=== PATIENT | female | born 1945 | race Caucasian/White ===

== ENCOUNTER 2016-07-31 20:57 | Emergency (ER) | payer OTHER, BC ==
[~2016-07-31] VITALS: Ht 162.6 cm; Wt 131.5 kg
[2016-07-31 22:00] VITALS: BP_SYST 127
[2016-07-31] MEDS ORDERED: KETOROLAC TROMETHAMINE 60 MG/2 ML VIAL IM ONE (22:15)
[2016-07-31 23:01] LABS: BASOPHILS # (AUTO) 0.1 K/uL (0.0-0.2); BASOPHILS % (AUTO) 0.8 % (0.0-2.0); EOSINOPHILS # (AUTO) 0.4 K/uL (0.0-0.4); HEMATOCRIT 38.2 % (36-48); HEMOGLOBIN 12.9 g/dL (12.0-16.0); LYMPHOCYTES # (AUTO) 2.8 K/uL (1.0-5.5); LYMPHOCYTES % (AUTO) 23.1 % (20.5-51.5); MEAN CORPUSCULAR HEMOGLOBIN 30 pg (27-31); MEAN CORPUSCULAR HGB CONC 34 % (32-36); MEAN CORPUSCULAR VOLUME 89 fL (79.0-98.0); MONOCYTES # (AUTO) 0.8 K/uL (0.0-1.0); MONOCYTES % (AUTO) 6.4 % (1.7-9.3); NEUTROPHILS # (AUTO) 7.9 K/uL (1.8-7.7); NEUTROPHILS % (AUTO) 66.7 % (40.0-70.0); PLATELET COUNT (AUTO) 419 K/uL (130-430); RED BLOOD CELL COUNT(AUTO) 4.27 MIL/uL (4.2-6.2); RED CELL DISTRIBUTION WIDTH 12.4 % (9.0-15.0)
[2016-08-01 00:02] VITALS: BP_SYST 122
== END 2016-08-01 00:02 | disposition home or self-care (01) ==
LOC: SED 20:57
DX: M10.9 Gout, unspecified (principal); I10 Essential (primary) hypertension; E78.00 Pure hypercholesterolemia, unspecified; Z88.0 Allergy status to penicillin
CPT/HCPCS: 36415; 73630; 84550; 85025; 96372; 99285; J1885

== ENCOUNTER 2017-12-27 07:56 | Emergency (ER) | payer OTHER, BC ==
[~2017-12-27] VITALS: Ht 162.6 cm; Wt 136.1 kg
[2017-12-27 08:05] VITALS: BP_SYST 154
[2017-12-27 08:57] VITALS: BP_SYST 144
== END 2017-12-27 08:57 | disposition home or self-care (01) ==
LOC: SED 07:56
DX: S92.351A Displaced fracture of fifth metatarsal bone, right foot, initial encounter for closed fracture (principal); E78.00 Pure hypercholesterolemia, unspecified; I10 Essential (primary) hypertension; Z88.0 Allergy status to penicillin; X58.XXXA Exposure to other specified factors, initial encounter; Y93.89 Activity, other specified; Y92.89 Other specified places as the place of occurrence of the external cause; Y99.8 Other external cause status
CPT/HCPCS: 99284

== ENCOUNTER 2020-06-10 13:14 | Inpatient (IN) | payer BC, SELFPAY ==
[~2020-06-10] VITALS: Ht 162.6 cm; Wt 136.1 kg
[~2020-06-10 13:14] MED LIST: BUPIVACAINE /DEX PF 0.75% SPINAL 2 ML AMP INJ ONE; BUPIVACAINE /EPINEPHRINE/PF 0.25% 30 ML VIAL INJ ONE; CEFAZOLIN 1 GM IVPB PREMIX 50 ML IV ONE; EPINEPHrine 1 MG/ML AMP IM ONE; LR 1,000 ML IV.SOLN IV ONE; MIDAZOLAM HCL 5 MG/5 ML VIAL IVP ONE; NS 1000 ML IV.SOLN IV ONE; NS IRRIG SOLN 1000 ML IR ONE; PROPOFOL 200MG/ 20ML VIAL (DIPRIVAN) IV ONE
[2020-06-10 13:15] VITALS: BP_SYST 165
[2020-06-10] MEDS ORDERED: fentaNYL CITRATE/PF 100 MCG/2 ML AMP IVP ONE (14:45)
[2020-06-10] MEDS ORDERED: fentaNYL CITRATE/PF 100 MCG/2 ML AMP ONE (14:46)
[2020-06-10 14:52] LABS: BASOPHILS # (AUTO) 0.2 K/uL (0.0-0.2); BASOPHILS % (AUTO) 1.4 % (0.0-2.0); EOSINOPHILS # (AUTO) 0.1 K/uL (0.0-0.4); HEMATOCRIT 32.5 % (36-48); HEMOGLOBIN 10.7 g/dL (12.0-16.0); LYMPHOCYTES # (AUTO) 1.9 K/uL (1.0-5.5); LYMPHOCYTES % (AUTO) 13.2 % (20.5-51.5); MEAN CORPUSCULAR HEMOGLOBIN 30 pg (27-31); MEAN CORPUSCULAR HGB CONC 33 % (32-36); MEAN CORPUSCULAR VOLUME 91 fL (79.0-98.0); MONOCYTES # (AUTO) 0.7 K/uL (0.0-1.0); MONOCYTES % (AUTO) 4.7 % (1.7-9.3); NEUTROPHILS # (AUTO) 11.2 K/uL (1.8-7.7); NEUTROPHILS % (AUTO) 79.7 % (40.0-70.0); PLATELET COUNT (AUTO) 355 K/uL (130-430); RED BLOOD CELL COUNT(AUTO) 3.57 MIL/uL (4.2-6.2)
[2020-06-10 15:11] LABS: ANION GAP 7 (5-15); CALCIUM 9.2 mg/dL (8.4-11.0); CHLORIDE 104 mmol/L (98-107); CREATININE 1.77 mg/dL (0.55-1.30); GLUCOSE 145 mg/dL (70-99); POTASSIUM 4.4 mmol/L (3.5-5.1); SODIUM SERUM 140 mmol/L (136-145); UREA NITROGEN, BLOOD 31 mg/dL (8-21)
[2020-06-10] MEDS: D5/0.45 NS 1,000 ML IV SCH (15:15)
[2020-06-10] MEDS ORDERED: MORPHINE 2 MG/ML INJ. SYRINGE IVP PRN (15:15)
[2020-06-10 15:16] LABS: ALANINE AMINOTRANSFERASE 18 U/L (12-78); ALBUMIN 3.5 g/dL (3.4-4.8); ASPARTATE AMINOTRANSFERASE 15 U/L (10-37); TOTAL BILIRUBIN 0.2 mg/dL (0.0-1.0)
[2020-06-10 16:38] LABS: PROTHROMBIN TIME 9.8 SECS (9.5-12.5)
[2020-06-10 18:33] VITALS: BP_SYST 127
[2020-06-10 18:45] VITALS: BP_SYST 127
[2020-06-10] MEDS: MORPHINE 4 MG/ML INJ. SYRINGE IVP PRN ×2 (18:50→23:24)
[2020-06-10 20:00] VITALS: BP_SYST 120
[2020-06-11 00:35] VITALS: BP_SYST 127
[2020-06-11 01:30] VITALS: BP_SYST 96
[2020-06-11] MEDS: MORPHINE 4 MG/ML INJ. SYRINGE IVP PRN ×3 (04:50→20:31)
[2020-06-11] MEDS: D5/0.45 NS 1,000 ML IV SCH (09:42)
[2020-06-11] MEDS: cefTRIAXone 1 GM IVPB PREMIX 50 ML IV SCH (11:15)
[2020-06-11 12:45] VITALS: BP_SYST 105
[2020-06-11 16:20] VITALS: BP_SYST 118
[2020-06-11] MEDS ORDERED: METO25TA6 PO ×2 (19:44→19:46)
[2020-06-11] MEDS ORDERED: LIP20 PO (19:45)
[2020-06-11] MEDS ORDERED: LOSA1TAB9 PO (19:45)
[2020-06-11 20:00] VITALS: BP_SYST 110
[2020-06-12] MEDS: MORPHINE 4 MG/ML INJ. SYRINGE IVP PRN ×2 (03:32→13:00)
[2020-06-12 04:08] LABS: BILIRUBIN,URINE NEGATIVE (NEGATIVE); BLOOD, URINE 2+ (NEGATIVE); CLARITY/URINE CLEAR (CLEAR); COLOR,URINE YELLOW (YELLOW); GLUCOSE,URINE NEGATIVE (NEGATIVE); KETONES,URINE NEGATIVE (NEGATIVE); LEUKOCYTE ESTERASE ,URINE NEGATIVE (NEGATIVE); NITRITE, URINE NEGATIVE (NEGATIVE); PROTEIN URINE NEGATIVE (NEGATIVE); UROBILINOGEN,URINE 0.2 (0.2-1.0)
[2020-06-12 04:11] LABS: BACTERIA,URINE FEW /HPF (None Seen); WBC,URINE 0-3 /HPF (0-3)
[2020-06-12 08:00] VITALS: BP_SYST 111
[2020-06-12] MEDS: cefTRIAXone 1 GM IVPB PREMIX 50 ML IV SCH (08:34)
[2020-06-12] MEDS: D5/0.45 NS 1,000 ML IV SCH (08:37)
[2020-06-12 12:00] VITALS: BP_SYST 112
[2020-06-12 16:00] VITALS: BP_SYST 110
[2020-06-12 19:56] VITALS: BP_SYST 138
[2020-06-13 00:25] VITALS: BP_SYST 113
[2020-06-13] MEDS: D5/0.45 NS 1,000 ML IV SCH (03:15)
[2020-06-13] MEDS: MORPHINE 4 MG/ML INJ. SYRINGE IVP PRN ×2 (03:53→19:27)
[2020-06-13 07:48] LABS: ANION GAP 10 (5-15); CALCIUM 8.6 mg/dL (8.4-11.0); CHLORIDE 104 mmol/L (98-107); CREATININE 2.74 mg/dL (0.55-1.30); GLUCOSE 136 mg/dL (70-99); POTASSIUM 4.8 mmol/L (3.5-5.1); SODIUM SERUM 138 mmol/L (136-145); UREA NITROGEN, BLOOD 55 mg/dL (8-21)
[2020-06-13] MEDS: cefTRIAXone 1 GM IVPB PREMIX 50 ML IV SCH (08:18)
[2020-06-13 09:41] LABS: BASOPHILS # (AUTO) 0.1 K/uL (0.0-0.2); BASOPHILS % (AUTO) 0.5 % (0.0-2.0); EOSINOPHILS % (AUTO) 0.3 % (0.0-4.0); LYMPHOCYTES # (AUTO) 1.4 K/uL (1.0-5.5); MEAN CORPUSCULAR HEMOGLOBIN 30 pg (27-31); MEAN CORPUSCULAR HGB CONC 33 % (32-36); MEAN CORPUSCULAR VOLUME 91 fL (79.0-98.0); MONOCYTES # (AUTO) 1.1 K/uL (0.0-1.0); MONOCYTES % (AUTO) 9.4 % (1.7-9.3); NEUTROPHILS # (AUTO) 9.1 K/uL (1.8-7.7); PLATELET COUNT (AUTO) 253 K/uL (130-430); RED BLOOD CELL COUNT(AUTO) 2.26 MIL/uL (4.2-6.2); RED CELL DISTRIBUTION WIDTH 12.7 % (9.0-15.0); WHITE BLOOD COUNT (AUTO) 11.7 K/uL (4.8-10.8)
[2020-06-13 09:44] LABS: HEMATOCRIT 20.7 % (36-48); HEMOGLOBIN 6.8 g/dL (12.0-16.0)
[2020-06-13 10:13] VITALS: BP_SYST 113
[2020-06-13] MEDS ORDERED: NACL 0.9% 1,000 ML IV ONE (10:15)
[2020-06-13 12:00] VITALS: BP_SYST 121
[2020-06-13 12:35] LABS: NEUTROPHILS % (AUTO) 77.8 % (40.0-70.0)
[2020-06-13] MEDS ORDERED: ACETAMINOPHEN 325 MG TABLET ONE (13:47)
[2020-06-13] MEDS: ACETAMINOPHEN 325 MG TABLET PO PRN (13:51)
[2020-06-13 16:00] VITALS: BP_SYST 120
[2020-06-13 19:55] LABS: HEMOGLOBIN 8.3 g/dL (12.0-16.0)
[2020-06-13 20:00] VITALS: BP_SYST 134
[2020-06-14] VITALS: BP_SYST 103
[2020-06-14] MEDS: MORPHINE 4 MG/ML INJ. SYRINGE IVP PRN ×2 (03:49→15:10)
[2020-06-14] MEDS: NACL 0.9% 1,000 ML IV SCH ×3 (04:04→21:10)
[2020-06-14 08:00] VITALS: BP_SYST 108
[2020-06-14] MEDS: cefTRIAXone 1 GM IVPB PREMIX 50 ML IV SCH (08:09)
[2020-06-14 08:47] LABS: HEMATOCRIT 25.9 % (36-48); HEMOGLOBIN 8.6 g/dL (12.0-16.0)
[2020-06-14 08:54] LABS: ANION GAP 10 (5-15); CALCIUM 8.6 mg/dL (8.4-11.0); CHLORIDE 108 mmol/L (98-107); GLUCOSE 110 mg/dL (70-99); POTASSIUM 4.8 mmol/L (3.5-5.1); SODIUM SERUM 141 mmol/L (136-145); UREA NITROGEN, BLOOD 57 mg/dL (8-21)
[2020-06-14] MEDS ORDERED: ONDANSETRON HCL 4 MG/2 ML VIAL IVP PRN (11:15)
[2020-06-14] MEDS ORDERED: fentaNYL CITRATE/PF 100 MCG/2 ML AMP IVP PRN ×2 (11:15)
[2020-06-14] MEDS ORDERED: HYDROcodone/ACETAMIN 5-325 MG TAB (NORCO/ VICODIN) PO PRN (13:45)
[2020-06-14] MEDS ORDERED: NALOXONE HCL 0.4 MG/ML AMP (NARCAN) IVP PRN ×2 (13:45)
[2020-06-14 14:15] VITALS: BP_SYST 103
[2020-06-14] MEDS: CEFAZOLIN 1 GM IVPB PREMIX 50 ML IV SCH ×2 (15:00→21:11)
[2020-06-14 16:36] VITALS: BP_SYST 89
[2020-06-14 20:00] VITALS: BP_SYST 114
[2020-06-14] MEDS ORDERED: HYDROcodone/ACETAMIN 5-325 MG TAB (NORCO/ VICODIN) ONE (21:25)
[2020-06-14] MEDS: HYDROcodone/ACETAMIN 5-325 MG TAB (NORCO/ VICODIN) PO PRN (21:26)
[2020-06-15 01:20] VITALS: BP_SYST 106
[2020-06-15] MEDS ORDERED: HYDROcodone/ACETAMIN 5-325 MG TAB (NORCO/ VICODIN) ONE (01:56)
[2020-06-15] MEDS: NACL 0.9% 1,000 ML IV SCH ×2 (01:56→18:01)
[2020-06-15] MEDS: HYDROcodone/ACETAMIN 5-325 MG TAB (NORCO/ VICODIN) PO PRN ×2 (01:58→21:39)
[2020-06-15 07:44] LABS: BASOPHILS # (AUTO) 0.1 K/uL (0.0-0.2); BASOPHILS % (AUTO) 0.7 % (0.0-2.0); EOSINOPHILS # (AUTO) 0.2 K/uL (0.0-0.4); EOSINOPHILS % (AUTO) 2.4 % (0.0-4.0); LYMPHOCYTES # (AUTO) 1.5 K/uL (1.0-5.5); LYMPHOCYTES % (AUTO) 14.8 % (20.5-51.5); MEAN CORPUSCULAR HEMOGLOBIN 31 pg (27-31); MEAN CORPUSCULAR HGB CONC 34 % (32-36); MEAN CORPUSCULAR VOLUME 93 fL (79.0-98.0); MONOCYTES % (AUTO) 9.8 % (1.7-9.3); NEUTROPHILS # (AUTO) 7.3 K/uL (1.8-7.7); NEUTROPHILS % (AUTO) 72.3 % (40.0-70.0); PLATELET COUNT (AUTO) 288 K/uL (130-430); RED BLOOD CELL COUNT(AUTO) 2.19 MIL/uL (4.2-6.2); RED CELL DISTRIBUTION WIDTH 13.1 % (9.0-15.0); WHITE BLOOD COUNT (AUTO) 10.1 K/uL (4.8-10.8)
[2020-06-15 07:53] LABS: ANION GAP 10 (5-15); CALCIUM 8.3 mg/dL (8.4-11.0); CHLORIDE 106 mmol/L (98-107); CREATININE 2.28 mg/dL (0.55-1.30); GLUCOSE 119 mg/dL (70-99); POTASSIUM 4.7 mmol/L (3.5-5.1); SODIUM SERUM 138 mmol/L (136-145); UREA NITROGEN, BLOOD 64 mg/dL (8-21)
[2020-06-15 08:00] VITALS: BP_SYST 104
[2020-06-15 08:52] LABS: HEMATOCRIT 20.3 % (36-48); HEMOGLOBIN 6.8 g/dL (12.0-16.0)
[2020-06-15] MEDS: cefTRIAXone 1 GM IVPB PREMIX 50 ML IV SCH (09:00)
[2020-06-15] MEDS ORDERED: IPRATROPIUM/ALBUTEROL SULFATE 3 ML AMPUL.NEB (DUONEB) INH PRN (11:45)
[2020-06-15 12:13] VITALS: BP_SYST 110
[2020-06-15] MEDS: ENOXAPARIN SODIUM 30 MG/0.3 ML SYRINGE SQ SCH (13:00)
[2020-06-15 16:11] VITALS: BP_SYST 120
[2020-06-15] MEDS ORDERED: ONDANSETRON HCL 4 MG/2 ML VIAL ONE (18:05)
[2020-06-15 20:00] VITALS: BP_SYST 113
[2020-06-15] MEDS: METOPROLOL TARTRATE 25 MG TABLET PO SCH (21:00)
[2020-06-15] MEDS: ATORVASTATIN 20 MG TABLET PO SCH (21:39)
[2020-06-16 02:14] VITALS: BP_SYST 110
[2020-06-16] MEDS ORDERED: ONDANSETRON HCL 4 MG/2 ML VIAL ONE ×2 (03:01→08:23)
[2020-06-16] MEDS: ONDANSETRON HCL 4 MG/2 ML VIAL IM PRN ×2 (03:04→08:28)
[2020-06-16] MEDS ORDERED: ACETAMINOPHEN 325 MG TABLET ONE (03:53)
[2020-06-16] MEDS: ACETAMINOPHEN 325 MG TABLET PO PRN (03:55)
[2020-06-16 06:58] LABS: BILIRUBIN,URINE NEGATIVE (NEGATIVE); BLOOD, URINE 2+ (NEGATIVE); CLARITY/URINE SL CLOUDY (CLEAR); COLOR,URINE YELLOW (YELLOW); GLUCOSE,URINE NEGATIVE (NEGATIVE); KETONES,URINE NEGATIVE (NEGATIVE); LEUKOCYTE ESTERASE ,URINE TRACE (NEGATIVE); NITRITE, URINE NEGATIVE (NEGATIVE); PROTEIN URINE 1+ (NEGATIVE); UROBILINOGEN,URINE 0.2 (0.2-1.0)
[2020-06-16 08:25] VITALS: BP_SYST 118
[2020-06-16 08:26] LABS: BASOPHILS # (AUTO) 0.1 K/uL (0.0-0.2); BASOPHILS % (AUTO) 0.6 % (0.0-2.0); EOSINOPHILS # (AUTO) 0.3 K/uL (0.0-0.4); EOSINOPHILS % (AUTO) 2.1 % (0.0-4.0); HEMATOCRIT 26.8 % (36-48); HEMOGLOBIN 8.9 g/dL (12.0-16.0); LYMPHOCYTES # (AUTO) 1.1 K/uL (1.0-5.5); LYMPHOCYTES % (AUTO) 8.3 % (20.5-51.5); MEAN CORPUSCULAR HEMOGLOBIN 30 pg (27-31); MEAN CORPUSCULAR HGB CONC 33 % (32-36); MEAN CORPUSCULAR VOLUME 92 fL (79.0-98.0); MONOCYTES # (AUTO) 1.1 K/uL (0.0-1.0); MONOCYTES % (AUTO) 8.5 % (1.7-9.3); NEUTROPHILS # (AUTO) 10.5 K/uL (1.8-7.7); NEUTROPHILS % (AUTO) 80.5 % (40.0-70.0); PLATELET COUNT (AUTO) 356 K/uL (130-430); RED BLOOD CELL COUNT(AUTO) 2.93 MIL/uL (4.2-6.2); RED CELL DISTRIBUTION WIDTH 13.7 % (9.0-15.0)
[2020-06-16 08:41] LABS: RBC,URINE 20-50 /HPF (0-3)
[2020-06-16 08:42] LABS: BACTERIA,URINE None Seen /HPF (None Seen); URINE AMORPHOUS URATE 1+ /HPF (None Seen); YEAST,URINE Moderate /HPF (None Seen)
[2020-06-16 08:55] LABS: ALANINE AMINOTRANSFERASE 12 U/L (12-78); ALBUMIN 1.7 g/dL (3.4-4.8); ANION GAP 10 (5-15); ASPARTATE AMINOTRANSFERASE 43 U/L (10-37); CALCIUM 8.8 mg/dL (8.4-11.0); CHLORIDE 108 mmol/L (98-107); CREATININE 1.92 mg/dL (0.55-1.30); GLUCOSE 122 mg/dL (70-99); POTASSIUM 4.6 mmol/L (3.5-5.1); SODIUM SERUM 141 mmol/L (136-145); TOTAL BILIRUBIN 0.9 mg/dL (0.0-1.0); UREA NITROGEN, BLOOD 62 mg/dL (8-21)
[2020-06-16] MEDS: METOPROLOL TARTRATE 25 MG TABLET PO SCH ×2 (09:00→22:40)
[2020-06-16] MEDS: LOSARTAN POTASSIUM 25 MG TABLET PO SCH (09:00)
[2020-06-16 09:50] VITALS: BP_SYST 118
[2020-06-16] MEDS: cefTRIAXone 1 GM IVPB PREMIX 50 ML IV SCH (10:40)
[2020-06-16] MEDS: NACL 0.9% 1,000 ML IV SCH ×2 (10:41→11:35)
[2020-06-16] MEDS: ENOXAPARIN SODIUM 30 MG/0.3 ML SYRINGE SQ SCH (10:43)
[2020-06-16] MEDS ORDERED: METOCLOPRAMIDE HCL 10 MG/2 ML VIAL ONE (10:56)
[2020-06-16 13:09] VITALS: BP_SYST 134
[2020-06-16 17:00] VITALS: BP_SYST 136
[2020-06-16] MEDS: ATORVASTATIN 20 MG TABLET PO SCH (22:41)
[2020-06-16] MEDS: METOCLOPRAMIDE HCL 10 MG/2 ML VIAL IVP PRN (22:43)
[2020-06-17 07:04] LABS: BASOPHILS # (AUTO) 0.1 K/uL (0.0-0.2); BASOPHILS % (AUTO) 0.5 % (0.0-2.0); EOSINOPHILS # (AUTO) 0.1 K/uL (0.0-0.4); EOSINOPHILS % (AUTO) 0.6 % (0.0-4.0); HEMATOCRIT 26.2 % (36-48); HEMOGLOBIN 8.7 g/dL (12.0-16.0); LYMPHOCYTES # (AUTO) 1.2 K/uL (1.0-5.5); LYMPHOCYTES % (AUTO) 8.3 % (20.5-51.5); MEAN CORPUSCULAR HEMOGLOBIN 31 pg (27-31); MEAN CORPUSCULAR HGB CONC 33 % (32-36); MEAN CORPUSCULAR VOLUME 92 fL (79.0-98.0); MONOCYTES # (AUTO) 1.2 K/uL (0.0-1.0); MONOCYTES % (AUTO) 8.4 % (1.7-9.3); NEUTROPHILS # (AUTO) 11.9 K/uL (1.8-7.7); NEUTROPHILS % (AUTO) 82.2 % (40.0-70.0); PLATELET COUNT (AUTO) 425 K/uL (130-430); RED BLOOD CELL COUNT(AUTO) 2.85 MIL/uL (4.2-6.2); RED CELL DISTRIBUTION WIDTH 13.7 % (9.0-15.0); WHITE BLOOD COUNT (AUTO) 14.4 K/uL (4.8-10.8)
[2020-06-17 07:36] LABS: ANION GAP 11 (5-15); CALCIUM 9.1 mg/dL (8.4-11.0); CHLORIDE 109 mmol/L (98-107); CREATININE 1.94 mg/dL (0.55-1.30); GLUCOSE 126 mg/dL (70-99); POTASSIUM 4.3 mmol/L (3.5-5.1); SODIUM SERUM 143 mmol/L (136-145); UREA NITROGEN, BLOOD 66 mg/dL (8-21)
[2020-06-17] MEDS ORDERED: ONDANSETRON HCL 4 MG/2 ML VIAL ONE (08:31)
[2020-06-17 08:53] VITALS: BP_SYST 102
[2020-06-17] MEDS: cefTRIAXone 1 GM IVPB PREMIX 50 ML IV SCH (09:05)
[2020-06-17] MEDS: LOSARTAN POTASSIUM 25 MG TABLET PO SCH (09:06)
[2020-06-17] MEDS: METOPROLOL TARTRATE 25 MG TABLET PO SCH ×2 (09:06→20:17)
[2020-06-17] MEDS: METOCLOPRAMIDE HCL 10 MG/2 ML VIAL IVP PRN ×2 (09:07→21:21)
[2020-06-17] MEDS: ENOXAPARIN SODIUM 30 MG/0.3 ML SYRINGE SQ SCH (09:08)
[2020-06-17 12:58] VITALS: BP_SYST 128
[2020-06-17] MEDS: PANTOPRAZOLE SODIUM 40 MG/VIAL (PROTONIX) IVP SCH (15:36)
[2020-06-17] MEDS: traMADol HCL HCL 50 MG TABLET (ULTRAM) PO SCH ×2 (15:37→23:25)
[2020-06-17 16:41] VITALS: BP_SYST 115
[2020-06-17 20:00] VITALS: BP_SYST 145
[2020-06-17] MEDS: ONDANSETRON HCL 4 MG/2 ML VIAL IVP PRN (20:17)
[2020-06-17] MEDS: ATORVASTATIN 20 MG TABLET PO SCH (20:17)
[2020-06-17] MEDS: ACETAMINOPHEN 325 MG TABLET PO PRN (23:28)
[2020-06-17] MEDS ORDERED: ACETAMINOPHEN 325 MG TABLET ONE (23:28)
[2020-06-18] MEDS: NACL 0.9% 1,000 ML IV SCH ×3 (01:00→16:55)
[2020-06-18 01:35] VITALS: BP_SYST 122
[2020-06-18] MEDS: traMADol HCL HCL 50 MG TABLET (ULTRAM) PO SCH ×3 (05:29→18:00)
[2020-06-18 06:46] LABS: BASOPHILS % (AUTO) 0.3 % (0.0-2.0); EOSINOPHILS # (AUTO) 0.3 K/uL (0.0-0.4); EOSINOPHILS % (AUTO) 2.2 % (0.0-4.0); HEMOGLOBIN 8.4 g/dL (12.0-16.0); LYMPHOCYTES # (AUTO) 1.5 K/uL (1.0-5.5); MEAN CORPUSCULAR HEMOGLOBIN 31 pg (27-31); MEAN CORPUSCULAR HGB CONC 33 % (32-36); MEAN CORPUSCULAR VOLUME 93 fL (79.0-98.0); MONOCYTES # (AUTO) 1.2 K/uL (0.0-1.0); MONOCYTES % (AUTO) 8.4 % (1.7-9.3); NEUTROPHILS # (AUTO) 11.6 K/uL (1.8-7.7); NEUTROPHILS % (AUTO) 79.1 % (40.0-70.0); PLATELET COUNT (AUTO) 480 K/uL (130-430); RED BLOOD CELL COUNT(AUTO) 2.69 MIL/uL (4.2-6.2); RED CELL DISTRIBUTION WIDTH 13.9 % (9.0-15.0); WHITE BLOOD COUNT (AUTO) 14.7 K/uL (4.8-10.8)
[2020-06-18 07:36] LABS: ANION GAP 12 (5-15); CALCIUM 8.8 mg/dL (8.4-11.0); CHLORIDE 109 mmol/L (98-107); GLUCOSE 111 mg/dL (70-99); POTASSIUM 4.2 mmol/L (3.5-5.1); SODIUM SERUM 142 mmol/L (136-145); UREA NITROGEN, BLOOD 65 mg/dL (8-21)
[2020-06-18 08:05] VITALS: BP_SYST 135
[2020-06-18] MEDS: METOPROLOL TARTRATE 25 MG TABLET PO SCH ×2 (08:40→21:02)
[2020-06-18] MEDS: LOSARTAN POTASSIUM 25 MG TABLET PO SCH (08:41)
[2020-06-18] MEDS: PANTOPRAZOLE SODIUM 40 MG/VIAL (PROTONIX) IVP SCH (08:42)
[2020-06-18] MEDS: ENOXAPARIN SODIUM 30 MG/0.3 ML SYRINGE SQ SCH (08:42)
[2020-06-18 12:40] VITALS: BP_SYST 121
[2020-06-18 16:45] VITALS: BP_SYST 130
[2020-06-18 20:00] VITALS: BP_SYST 147
[2020-06-18] MEDS: ONDANSETRON HCL 4 MG/2 ML VIAL IVP PRN (20:59)
[2020-06-18] MEDS: ATORVASTATIN 20 MG TABLET PO SCH (20:59)
[2020-06-19 00:41] VITALS: BP_SYST 133
[2020-06-19] MEDS: guaiFENesin/DEXTROMETHORPHAN 10 ML UDC PO PRN (02:06)
[2020-06-19] MEDS: NACL 0.9% 1,000 ML IV SCH ×2 (02:07→05:48)
[2020-06-19] MEDS ORDERED: ACETAMINOPHEN 325 MG TABLET ONE ×2 (02:49→10:51)
[2020-06-19] MEDS: ACETAMINOPHEN 325 MG TABLET PO PRN ×2 (02:50→10:52)
[2020-06-19 07:29] VITALS: BP_SYST 104
[2020-06-19] MEDS: LOSARTAN POTASSIUM 25 MG TABLET PO SCH (08:56)
[2020-06-19] MEDS: METOPROLOL TARTRATE 25 MG TABLET PO SCH ×2 (08:56→21:38)
[2020-06-19] MEDS: PANTOPRAZOLE SODIUM 40 MG/VIAL (PROTONIX) IVP SCH (08:57)
[2020-06-19] MEDS: METOCLOPRAMIDE HCL 10 MG/2 ML VIAL IVP PRN (08:59)
[2020-06-19] MEDS ORDERED: METOCLOPRAMIDE HCL 10 MG/2 ML VIAL IVP PRN ×2 (09:00)
[2020-06-19] MEDS: ENOXAPARIN SODIUM 40 MG/0.4 ML SYRINGE SUBCUT SCH (09:00)
[2020-06-19 12:15] VITALS: BP_SYST 143
[2020-06-19] MEDS: D5/0.45 NS 1,000 ML IV SCH ×2 (14:15→21:41)
[2020-06-19 16:19] VITALS: BP_SYST 121
[2020-06-19 20:05] VITALS: BP_SYST 122
[2020-06-19] MEDS: ATORVASTATIN 20 MG TABLET PO SCH (21:36)
[2020-06-20 00:15] VITALS: BP_SYST 118
[2020-06-20] MEDS: traMADol HCL HCL 50 MG TABLET (ULTRAM) PO SCH ×2 (05:26)
[2020-06-20 07:24] LABS: BASOPHILS # (AUTO) 0.1 K/uL (0.0-0.2); BASOPHILS % (AUTO) 0.5 % (0.0-2.0); EOSINOPHILS # (AUTO) 0.5 K/uL (0.0-0.4); EOSINOPHILS % (AUTO) 3.5 % (0.0-4.0); HEMATOCRIT 26.2 % (36-48); HEMOGLOBIN 8.6 g/dL (12.0-16.0); LYMPHOCYTES # (AUTO) 1.5 K/uL (1.0-5.5); LYMPHOCYTES % (AUTO) 10.4 % (20.5-51.5); MEAN CORPUSCULAR HEMOGLOBIN 31 pg (27-31); MEAN CORPUSCULAR HGB CONC 33 % (32-36); MEAN CORPUSCULAR VOLUME 93 fL (79.0-98.0); MONOCYTES # (AUTO) 1.1 K/uL (0.0-1.0); MONOCYTES % (AUTO) 7.9 % (1.7-9.3); NEUTROPHILS # (AUTO) 11.2 K/uL (1.8-7.7); NEUTROPHILS % (AUTO) 77.7 % (40.0-70.0); PLATELET COUNT (AUTO) 604 K/uL (130-430); RED CELL DISTRIBUTION WIDTH 13.6 % (9.0-15.0); WHITE BLOOD COUNT (AUTO) 14.4 K/uL (4.8-10.8)
[2020-06-20 07:47] LABS: ALANINE AMINOTRANSFERASE 16 U/L (12-78); ALBUMIN 1.6 g/dL (3.4-4.8); ANION GAP 9 (5-15); ASPARTATE AMINOTRANSFERASE 35 U/L (10-37); CALCIUM 9.1 mg/dL (8.4-11.0); CHLORIDE 110 mmol/L (98-107); CREATININE 1.74 mg/dL (0.55-1.30); GLUCOSE 104 mg/dL (70-99); POTASSIUM 4.5 mmol/L (3.5-5.1); SODIUM SERUM 141 mmol/L (136-145); TOTAL BILIRUBIN 0.5 mg/dL (0.0-1.0); UREA NITROGEN, BLOOD 58 mg/dL (8-21)
[2020-06-20 08:00] VITALS: BP_SYST 118
[2020-06-20] MEDS: LOSARTAN POTASSIUM 25 MG TABLET PO SCH (09:00)
[2020-06-20] MEDS: METOPROLOL TARTRATE 25 MG TABLET PO SCH ×2 (09:00→21:00)
[2020-06-20] MEDS: PANTOPRAZOLE SODIUM 40 MG/VIAL (PROTONIX) IVP SCH (10:19)
[2020-06-20] MEDS: ENOXAPARIN SODIUM 40 MG/0.4 ML SYRINGE SUBCUT SCH (10:20)
[2020-06-20 10:39] VITALS: BP_SYST 118
[2020-06-20] MEDS: D5/0.45 NS 1,000 ML IV SCH ×2 (11:22→20:43)
[2020-06-20 12:09] VITALS: BP_SYST 120
[2020-06-20 16:00] VITALS: BP_SYST 125
[2020-06-20] MEDS ORDERED: IPRATROPIUM/ALBUTEROL SULFATE 3 ML AMPUL.NEB (DUONEB) INH PRN (18:45)
[2020-06-20] MEDS ORDERED: GASTROGRAFIN 120 ML ONE (18:59)
[2020-06-20] MEDS: IPRATROPIUM/ALBUTEROL SULFATE 3 ML AMPUL.NEB (DUONEB) INH SCH ×2 (19:00→23:00)
[2020-06-20 20:00] VITALS: BP_SYST 119
[2020-06-20] MEDS: ATORVASTATIN 20 MG TABLET PO SCH (21:00)
[2020-06-21 00:07] VITALS: BP_SYST 114
[2020-06-21] MEDS: IPRATROPIUM/ALBUTEROL SULFATE 3 ML AMPUL.NEB (DUONEB) INH SCH ×6 (03:00→23:00)
[2020-06-21] MEDS: D5/0.45 NS 1,000 ML IV SCH ×3 (03:23→20:12)
[2020-06-21 08:00] VITALS: BP_SYST 103
[2020-06-21] MEDS: traMADol HCL HCL 50 MG TABLET (ULTRAM) PO SCH ×4 (08:03→17:40)
[2020-06-21] MEDS: PANTOPRAZOLE SODIUM 40 MG/VIAL (PROTONIX) IVP SCH (08:39)
[2020-06-21] MEDS: ENOXAPARIN SODIUM 40 MG/0.4 ML SYRINGE SUBCUT SCH (08:40)
[2020-06-21] MEDS: LOSARTAN POTASSIUM 25 MG TABLET PO SCH (08:43)
[2020-06-21] MEDS: METOPROLOL TARTRATE 25 MG TABLET PO SCH ×2 (08:44→20:13)
[2020-06-21] MEDS: METOCLOPRAMIDE HCL 10 MG/2 ML VIAL IVP SCH ×2 (11:59→17:40)
[2020-06-21 12:02] VITALS: BP_SYST 122
[2020-06-21 16:00] VITALS: BP_SYST 131; BP_SYST 132
[2020-06-21 19:42] VITALS: BP_SYST 116
[2020-06-21] MEDS: ATORVASTATIN 20 MG TABLET PO SCH (20:12)
[2020-06-22] VITALS: BP_SYST 125
[2020-06-22] MEDS: traMADol HCL HCL 50 MG TABLET (ULTRAM) PO SCH ×4 (01:14→17:49)
[2020-06-22] MEDS: METOCLOPRAMIDE HCL 10 MG/2 ML VIAL IVP SCH ×4 (01:14→17:50)
[2020-06-22] MEDS: IPRATROPIUM/ALBUTEROL SULFATE 3 ML AMPUL.NEB (DUONEB) INH SCH ×6 (03:00→23:00)
[2020-06-22] MEDS: D5/0.45 NS 1,000 ML IV SCH ×4 (03:55→19:23)
[2020-06-22 07:09] LABS: BASOPHILS # (AUTO) 0.1 K/uL (0.0-0.2); BASOPHILS % (AUTO) 0.4 % (0.0-2.0); EOSINOPHILS # (AUTO) 0.5 K/uL (0.0-0.4); EOSINOPHILS % (AUTO) 3.8 % (0.0-4.0); HEMATOCRIT 22.7 % (36-48); LYMPHOCYTES # (AUTO) 1.2 K/uL (1.0-5.5); LYMPHOCYTES % (AUTO) 9.1 % (20.5-51.5); MEAN CORPUSCULAR HEMOGLOBIN 30 pg (27-31); MEAN CORPUSCULAR HGB CONC 31 % (32-36); MEAN CORPUSCULAR VOLUME 98 fL (79.0-98.0); MONOCYTES % (AUTO) 7.4 % (1.7-9.3); NEUTROPHILS # (AUTO) 10.5 K/uL (1.8-7.7); NEUTROPHILS % (AUTO) 79.3 % (40.0-70.0); PLATELET COUNT (AUTO) 569 K/uL (130-430); RED BLOOD CELL COUNT(AUTO) 2.32 MIL/uL (4.2-6.2); RED CELL DISTRIBUTION WIDTH 14.8 % (9.0-15.0); WHITE BLOOD COUNT (AUTO) 13.2 K/uL (4.8-10.8)
[2020-06-22 07:56] VITALS: BP_SYST 104
[2020-06-22] MEDS: ENOXAPARIN SODIUM 40 MG/0.4 ML SYRINGE SUBCUT SCH (08:28)
[2020-06-22] MEDS: PANTOPRAZOLE SODIUM 40 MG/VIAL (PROTONIX) IVP SCH (08:31)
[2020-06-22] MEDS: LOSARTAN POTASSIUM 25 MG TABLET PO SCH (08:32)
[2020-06-22] MEDS: METOPROLOL TARTRATE 25 MG TABLET PO SCH ×2 (08:33→21:32)
[2020-06-22 10:10] LABS: HEMOGLOBIN 6.9 g/dL (12.0-16.0)
[2020-06-22 12:47] VITALS: BP_SYST 115
[2020-06-22 16:52] VITALS: BP_SYST 108
[2020-06-22 18:19] LABS: BILIRUBIN,URINE NEGATIVE (NEGATIVE); BLOOD, URINE 2+ (NEGATIVE); CLARITY/URINE SL CLOUDY (CLEAR); COLOR,URINE YELLOW (YELLOW); GLUCOSE,URINE NEGATIVE (NEGATIVE); KETONES,URINE NEGATIVE (NEGATIVE); LEUKOCYTE ESTERASE ,URINE 2+ (NEGATIVE); NITRITE, URINE NEGATIVE (NEGATIVE); PH,URINE 5.5 (5.0-8.0); PROTEIN URINE 1+ (NEGATIVE); UROBILINOGEN,URINE 0.2 (0.2-1.0)
[2020-06-22 19:06] LABS: BACTERIA,URINE MODERATE /HPF (None Seen); RBC,URINE 0-3 /HPF (0-3); WBC,URINE 20-50 /HPF (0-3)
[2020-06-22 19:07] LABS: FINE GRANULAR CASTS,URINE 0-10 /LPF (None Seen); MUCUS,URINE None Seen /LPF (None Seen); YEAST,URINE Moderate /HPF (None Seen)
[2020-06-22 20:00] VITALS: BP_SYST 123
[2020-06-22] MEDS: ATORVASTATIN 20 MG TABLET PO SCH (21:33)
[2020-06-22 22:54] LABS: ALANINE AMINOTRANSFERASE 18 U/L (12-78); ALBUMIN 1.5 g/dL (3.4-4.8); ANION GAP 9 (5-15); ASPARTATE AMINOTRANSFERASE 30 U/L (10-37); CALCIUM 8.4 mg/dL (8.4-11.0); CHLORIDE 110 mmol/L (98-107); GLUCOSE 124 mg/dL (70-99); POTASSIUM 3.8 mmol/L (3.5-5.1); SODIUM SERUM 140 mmol/L (136-145); TOTAL BILIRUBIN 0.4 mg/dL (0.0-1.0); UREA NITROGEN, BLOOD 36 mg/dL (8-21)
[2020-06-23] VITALS: BP_SYST 117
[2020-06-23] MEDS: METOCLOPRAMIDE HCL 10 MG/2 ML VIAL IVP SCH ×5 (00:24→23:28)
[2020-06-23] MEDS: traMADol HCL HCL 50 MG TABLET (ULTRAM) PO SCH ×5 (00:24→23:39)
[2020-06-23] MEDS: D5/0.45 NS 1,000 ML IV SCH ×3 (02:03→12:56)
[2020-06-23] MEDS: IPRATROPIUM/ALBUTEROL SULFATE 3 ML AMPUL.NEB (DUONEB) INH SCH ×6 (03:00→23:00)
[2020-06-23 07:17] LABS: BASOPHILS # (AUTO) 0.1 K/uL (0.0-0.2); BASOPHILS % (AUTO) 0.8 % (0.0-2.0); EOSINOPHILS # (AUTO) 0.4 K/uL (0.0-0.4); EOSINOPHILS % (AUTO) 2.8 % (0.0-4.0); HEMATOCRIT 27.6 % (36-48); HEMOGLOBIN 9.1 g/dL (12.0-16.0); LYMPHOCYTES # (AUTO) 1.6 K/uL (1.0-5.5); LYMPHOCYTES % (AUTO) 12.2 % (20.5-51.5); MEAN CORPUSCULAR HEMOGLOBIN 30 pg (27-31); MEAN CORPUSCULAR HGB CONC 33 % (32-36); MEAN CORPUSCULAR VOLUME 91 fL (79.0-98.0); MONOCYTES % (AUTO) 7.5 % (1.7-9.3); NEUTROPHILS # (AUTO) 9.8 K/uL (1.8-7.7); NEUTROPHILS % (AUTO) 76.7 % (40.0-70.0); PLATELET COUNT (AUTO) 614 K/uL (130-430); RED BLOOD CELL COUNT(AUTO) 3.05 MIL/uL (4.2-6.2); RED CELL DISTRIBUTION WIDTH 14.6 % (9.0-15.0); RETICULOCYTE COUNT 2.5 % (0.5-1.5); WHITE BLOOD COUNT (AUTO) 12.7 K/uL (4.8-10.8)
[2020-06-23 07:44] VITALS: BP_SYST 125
[2020-06-23] MEDS: PANTOPRAZOLE SODIUM 40 MG/VIAL (PROTONIX) IVP SCH (08:12)
[2020-06-23] MEDS: METOPROLOL TARTRATE 25 MG TABLET PO SCH ×2 (08:13→23:00)
[2020-06-23] MEDS: LOSARTAN POTASSIUM 25 MG TABLET PO SCH (08:13)
[2020-06-23] MEDS: FOLIC ACID 1 MG TABLET PO SCH ×2 (08:22→08:29)
[2020-06-23 09:42] LABS: TOTAL IRON BIND. CAPACITY 179 ug/dL (250-450)
[2020-06-23] MEDS ORDERED: METOCLOPRAMIDE HCL 10 MG/2 ML VIAL ONE (11:05)
[2020-06-23] MEDS ORDERED: ENOXAPARIN SODIUM 30 MG/0.3 ML SYRINGE SUBCUT ONE (11:30)
[2020-06-23] MEDS: SOD FERRIC GLUC COMPLEX/SUC 125 MG in NS 100 ML IV SCH (12:23)
[2020-06-23 12:37] VITALS: BP_SYST 123
[2020-06-23 13:42] VITALS: BP_SYST 123
[2020-06-23 16:45] VITALS: BP_SYST 141
[2020-06-23 19:00] VITALS: BP_SYST 120
[2020-06-23] MEDS: ATORVASTATIN 20 MG TABLET PO SCH (22:56)
[2020-06-23] MEDS: guaiFENesin/DEXTROMETHORPHAN 10 ML UDC PO PRN (23:28)
[2020-06-24 00:34] VITALS: BP_SYST 105
[2020-06-24] MEDS: IPRATROPIUM/ALBUTEROL SULFATE 3 ML AMPUL.NEB (DUONEB) INH SCH ×6 (03:00→23:00)
[2020-06-24] MEDS: METOCLOPRAMIDE HCL 10 MG/2 ML VIAL IVP SCH ×4 (05:43→23:37)
[2020-06-24] MEDS: traMADol HCL HCL 50 MG TABLET (ULTRAM) PO SCH ×4 (07:45→23:37)
[2020-06-24 07:55] LABS: BASOPHILS # (AUTO) 0.1 K/uL (0.0-0.2); BASOPHILS % (AUTO) 0.7 % (0.0-2.0); EOSINOPHILS # (AUTO) 0.3 K/uL (0.0-0.4); EOSINOPHILS % (AUTO) 2.2 % (0.0-4.0); HEMATOCRIT 28.3 % (36-48); HEMOGLOBIN 9.3 g/dL (12.0-16.0); LYMPHOCYTES # (AUTO) 1.6 K/uL (1.0-5.5); LYMPHOCYTES % (AUTO) 11.2 % (20.5-51.5); MEAN CORPUSCULAR HEMOGLOBIN 30 pg (27-31); MEAN CORPUSCULAR HGB CONC 33 % (32-36); MEAN CORPUSCULAR VOLUME 90 fL (79.0-98.0); MONOCYTES % (AUTO) 7.1 % (1.7-9.3); NEUTROPHILS # (AUTO) 11.1 K/uL (1.8-7.7); NEUTROPHILS % (AUTO) 78.8 % (40.0-70.0); PLATELET COUNT (AUTO) 624 K/uL (130-430); RED BLOOD CELL COUNT(AUTO) 3.13 MIL/uL (4.2-6.2); RED CELL DISTRIBUTION WIDTH 14.6 % (9.0-15.0); WHITE BLOOD COUNT (AUTO) 14.1 K/uL (4.8-10.8)
[2020-06-24 08:02] VITALS: BP_SYST 122
[2020-06-24] MEDS: PANTOPRAZOLE SODIUM 40 MG/VIAL (PROTONIX) IVP SCH (08:12)
[2020-06-24] MEDS: LOSARTAN POTASSIUM 25 MG TABLET PO SCH (08:13)
[2020-06-24] MEDS: METOPROLOL TARTRATE 25 MG TABLET PO SCH ×2 (08:13→20:45)
[2020-06-24] MEDS: FOLIC ACID 1 MG TABLET PO SCH (08:13)
[2020-06-24] MEDS: ENOXAPARIN SODIUM 30 MG/0.3 ML SYRINGE SUBCUT SCH (08:20)
[2020-06-24] MEDS: D5/0.45 NS 1,000 ML IV SCH ×2 (09:53→18:26)
[2020-06-24] MEDS: SOD FERRIC GLUC COMPLEX/SUC 125 MG in NS 100 ML IV SCH (12:07)
[2020-06-24 12:46] VITALS: BP_SYST 135
[2020-06-24 15:50] LABS: FERRITIN 657 ng/mL (15-150); FOLATE (FOLIC ACID) <2.0 ng/mL (>3.0)
[2020-06-24 16:22] VITALS: BP_SYST 142
[2020-06-24 20:00] VITALS: BP_SYST 137
[2020-06-24] MEDS: ATORVASTATIN 20 MG TABLET PO SCH (20:45)
[2020-06-25 00:16] VITALS: BP_SYST 140
[2020-06-25 00:17] LABS: INR 1.1 (0.8-1.2); PROTHROMBIN TIME 10.8 SECS (9.5-12.5)
[2020-06-25] MEDS: IPRATROPIUM/ALBUTEROL SULFATE 3 ML AMPUL.NEB (DUONEB) INH SCH ×6 (03:00→23:00)
[2020-06-25] MEDS: traMADol HCL HCL 50 MG TABLET (ULTRAM) PO SCH (05:36)
[2020-06-25] MEDS: METOCLOPRAMIDE HCL 10 MG/2 ML VIAL IVP SCH ×3 (05:36→18:00)
[2020-06-25 08:00] VITALS: BP_SYST 119
[2020-06-25 08:18] LABS: BASOPHILS # (AUTO) 0.1 K/uL (0.0-0.2); BASOPHILS % (AUTO) 0.6 % (0.0-2.0); EOSINOPHILS # (AUTO) 0.2 K/uL (0.0-0.4); EOSINOPHILS % (AUTO) 1.8 % (0.0-4.0); HEMATOCRIT 26.5 % (36-48); HEMOGLOBIN 8.8 g/dL (12.0-16.0); LYMPHOCYTES # (AUTO) 1.2 K/uL (1.0-5.5); LYMPHOCYTES % (AUTO) 9.3 % (20.5-51.5); MEAN CORPUSCULAR HEMOGLOBIN 30 pg (27-31); MEAN CORPUSCULAR HGB CONC 33 % (32-36); MEAN CORPUSCULAR VOLUME 91 fL (79.0-98.0); MONOCYTES % (AUTO) 7.5 % (1.7-9.3); NEUTROPHILS # (AUTO) 10.8 K/uL (1.8-7.7); NEUTROPHILS % (AUTO) 80.8 % (40.0-70.0); PLATELET COUNT (AUTO) 645 K/uL (130-430); RED BLOOD CELL COUNT(AUTO) 2.93 MIL/uL (4.2-6.2); RED CELL DISTRIBUTION WIDTH 14.7 % (9.0-15.0); WHITE BLOOD COUNT (AUTO) 13.3 K/uL (4.8-10.8)
[2020-06-25] MEDS: PANTOPRAZOLE SODIUM 40 MG/VIAL (PROTONIX) IVP SCH (09:24)
[2020-06-25] MEDS: LOSARTAN POTASSIUM 25 MG TABLET PO SCH (09:34)
[2020-06-25] MEDS: FOLIC ACID 1 MG TABLET PO SCH (09:34)
[2020-06-25] MEDS: METOPROLOL TARTRATE 25 MG TABLET PO SCH ×2 (09:35→21:00)
[2020-06-25] MEDS: ENOXAPARIN SODIUM 30 MG/0.3 ML SYRINGE SUBCUT SCH (10:20)
[2020-06-25] MEDS: SOD FERRIC GLUC COMPLEX/SUC 125 MG in NS 100 ML IV SCH (12:12)
[2020-06-25] MEDS: D5/0.45 NS 1,000 ML IV SCH (12:16)
[2020-06-25 20:00] VITALS: BP_SYST 131
[2020-06-25] MEDS ORDERED: AZITHROMYCIN 500 MG in NS 250 ML IV SCH (21:00)
[2020-06-25] MEDS: ATORVASTATIN 20 MG TABLET PO SCH (21:00)
[2020-06-26] VITALS (7 sets, daily range): BP systolic 116–129
[2020-06-26] MEDS: D5/0.45 NS 1,000 ML IV SCH ×2 (02:18→15:13)
[2020-06-26] MEDS: IPRATROPIUM/ALBUTEROL SULFATE 3 ML AMPUL.NEB (DUONEB) INH SCH ×6 (03:00→23:00)
[2020-06-26] MEDS ORDERED: LEVOFLOXACIN 500 MG/D5W 100 ML IV SCH (05:00)
[2020-06-26] MEDS ORDERED: VANCOMYCIN HCL 1 GM/NS PREMIX 250 ML IV ONE (05:15)
[2020-06-26] MEDS ORDERED: LEVOFLOXACIN 500 MG/D5W 100 ML IV ONE (05:15)
[2020-06-26] MEDS: METOCLOPRAMIDE HCL 10 MG/2 ML VIAL IVP SCH ×4 (06:07→18:00)
[2020-06-26 07:15] LABS: HEMATOCRIT 27.3 % (36-48); HEMOGLOBIN 9.1 g/dL (12.0-16.0); MEAN CORPUSCULAR HEMOGLOBIN 30 pg (27-31); MEAN CORPUSCULAR HGB CONC 33 % (32-36); MEAN CORPUSCULAR VOLUME 90 fL (79.0-98.0); PLATELET COUNT (AUTO) 599 K/uL (130-430); RED BLOOD CELL COUNT(AUTO) 3.03 MIL/uL (4.2-6.2); RED CELL DISTRIBUTION WIDTH 14.3 % (9.0-15.0); WHITE BLOOD COUNT (AUTO) 14.5 K/uL (4.8-10.8)
[2020-06-26] MEDS ORDERED: FUROSEMIDE 40 MG/4 ML VIAL ONE (08:57)
[2020-06-26] MEDS: LEVOFLOXACIN 250 MG/D5W 50 ML IV SCH (09:00)
[2020-06-26] MEDS ORDERED: FUROSEMIDE 40 MG/4 ML VIAL IVP ONE (09:00)
[2020-06-26] MEDS: PANTOPRAZOLE SODIUM 40 MG/VIAL (PROTONIX) IVP SCH (09:01)
[2020-06-26] MEDS: FOLIC ACID 1 MG TABLET PO SCH (09:01)
[2020-06-26 09:04] LABS: ANION GAP 8 (5-15); CALCIUM 8.8 mg/dL (8.4-11.0); CHLORIDE 107 mmol/L (98-107); CREATININE 1.21 mg/dL (0.55-1.30); GLUCOSE 98 mg/dL (70-99); POTASSIUM 3.6 mmol/L (3.5-5.1); SODIUM SERUM 141 mmol/L (136-145); UREA NITROGEN, BLOOD 20 mg/dL (8-21)
[2020-06-26] MEDS: METOPROLOL TARTRATE 25 MG TABLET PO SCH ×2 (09:06→20:46)
[2020-06-26] MEDS: LOSARTAN POTASSIUM 25 MG TABLET PO SCH (09:06)
[2020-06-26 09:10] LABS: ALANINE AMINOTRANSFERASE 22 U/L (12-78); ALBUMIN 1.4 g/dL (3.4-4.8); ASPARTATE AMINOTRANSFERASE 34 U/L (10-37); TOTAL BILIRUBIN 0.4 mg/dL (0.0-1.0)
[2020-06-26] MEDS: ENOXAPARIN SODIUM 30 MG/0.3 ML SYRINGE SUBCUT SCH (09:13)
[2020-06-26] MEDS: traMADol HCL HCL 50 MG TABLET (ULTRAM) PO SCH ×3 (12:00→18:00)
[2020-06-26] MEDS: VANCOMYCIN HCL 1,750 MG in NS 500 ML IV SCH (12:18)
[2020-06-26 12:44] LABS: ATYPICAL LYMPHOCYTES % 1 % (0-0); BAND % (MANUAL) 9 % (0-6); BASOPHILS % (MANUAL) 0 % (0-2); EOSINOPHILS % (MANUAL) 3 % (0-7); LYMPHOCYTES % (MANUAL) 6 % (20-46); METAMYELOCYTES % 1 % (0-0); MONOCYTES % (MANUAL) 10 % (0-11)
[2020-06-26] MEDS ORDERED: HYDROmorphone 2 MG/ML VIAL IVP PRN ×2 (14:00)
[2020-06-26] MEDS ORDERED: fentaNYL CITRATE/PF 100 MCG/2 ML AMP IVP PRN (14:00)
[2020-06-26] MEDS ORDERED: HYDROmorphone 1 MG INJ. 1 MG/ML AMPUL IVP PRN (14:00)
[2020-06-26] MEDS ORDERED: LR 1,000 ML IV SCH ×2 (14:00)
[2020-06-26] MEDS ORDERED: MEPERIDINE HCL/PF 25 MG/ML DISP.SYRIN IVP PRN ×2 (14:00)
[2020-06-26] MEDS: ATORVASTATIN 20 MG TABLET PO SCH (20:45)
[2020-06-27] MEDS: METOCLOPRAMIDE HCL 10 MG/2 ML VIAL IVP SCH ×4 (00:44→18:16)
[2020-06-27 00:45] VITALS: BP_SYST 116
[2020-06-27] MEDS: IPRATROPIUM/ALBUTEROL SULFATE 3 ML AMPUL.NEB (DUONEB) INH SCH ×6 (03:00→23:00)
[2020-06-27] MEDS: D5/0.45 NS 1,000 ML IV SCH ×2 (06:00→17:26)
[2020-06-27 06:52] LABS: BASOPHILS % (AUTO) 0.2 % (0.0-2.0); EOSINOPHILS % (AUTO) 0.1 % (0.0-4.0); HEMATOCRIT 22.8 % (36-48); HEMOGLOBIN 7.7 g/dL (12.0-16.0); LYMPHOCYTES # (AUTO) 0.7 K/uL (1.0-5.5); LYMPHOCYTES % (AUTO) 4.8 % (20.5-51.5); MEAN CORPUSCULAR HEMOGLOBIN 30 pg (27-31); MEAN CORPUSCULAR HGB CONC 34 % (32-36); MEAN CORPUSCULAR VOLUME 90 fL (79.0-98.0); MONOCYTES # (AUTO) 0.4 K/uL (0.0-1.0); MONOCYTES % (AUTO) 2.4 % (1.7-9.3); NEUTROPHILS # (AUTO) 14.2 K/uL (1.8-7.7); NEUTROPHILS % (AUTO) 92.5 % (40.0-70.0); PLATELET COUNT (AUTO) 529 K/uL (130-430); RED BLOOD CELL COUNT(AUTO) 2.55 MIL/uL (4.2-6.2); RED CELL DISTRIBUTION WIDTH 14.4 % (9.0-15.0); WHITE BLOOD COUNT (AUTO) 15.3 K/uL (4.8-10.8)
[2020-06-27 06:53] LABS: INR 1.1 (0.8-1.2); PROTHROMBIN TIME 10.9 SECS (9.5-12.5)
[2020-06-27 06:56] LABS: ANION GAP 7 (5-15); CALCIUM 8.5 mg/dL (8.4-11.0); CHLORIDE 103 mmol/L (98-107); CREATININE 1.33 mg/dL (0.55-1.30); GLUCOSE 183 mg/dL (70-99); POTASSIUM 4.2 mmol/L (3.5-5.1); SODIUM SERUM 135 mmol/L (136-145); UREA NITROGEN, BLOOD 28 mg/dL (8-21)
[2020-06-27] MEDS: traMADol HCL HCL 50 MG TABLET (ULTRAM) PO PRN ×2 (07:05→12:52)
[2020-06-27 08:16] VITALS: BP_SYST 140
[2020-06-27] MEDS: LEVOFLOXACIN 250 MG/D5W 50 ML IV SCH (09:19)
[2020-06-27] MEDS: PANTOPRAZOLE SODIUM 40 MG/VIAL (PROTONIX) IVP SCH (09:19)
[2020-06-27] MEDS: METOPROLOL TARTRATE 25 MG TABLET PO SCH ×2 (09:20→21:00)
[2020-06-27] MEDS: LOSARTAN POTASSIUM 25 MG TABLET PO SCH (09:20)
[2020-06-27] MEDS: FOLIC ACID 1 MG TABLET PO SCH (09:20)
[2020-06-27] MEDS: ENOXAPARIN SODIUM 30 MG/0.3 ML SYRINGE SUBCUT SCH (10:08)
[2020-06-27 11:28] VITALS: BP_SYST 100
[2020-06-27] MEDS: VANCOMYCIN HCL 1,750 MG in NS 500 ML IV SCH (12:02)
[2020-06-27 15:33] VITALS: BP_SYST 118
[2020-06-27 20:00] VITALS: BP_SYST 110
[2020-06-27] MEDS: ONDANSETRON HCL 4 MG/2 ML VIAL IVP PRN (23:15)
[2020-06-27] MEDS: ATORVASTATIN 20 MG TABLET PO SCH (23:16)
[2020-06-28 00:50] VITALS: BP_SYST 110
[2020-06-28] MEDS: IPRATROPIUM/ALBUTEROL SULFATE 3 ML AMPUL.NEB (DUONEB) INH SCH ×6 (03:00→23:00)
[2020-06-28] MEDS: METOCLOPRAMIDE HCL 10 MG/2 ML VIAL IVP SCH ×5 (06:00→23:57)
[2020-06-28] MEDS: DEXAMETHASONE SOD PHOSPHATE 10 MG/ML VIAL IVP SCH ×3 (06:22→06:25)
[2020-06-28 09:03] LABS: BASOPHILS % (AUTO) 0.2 % (0.0-2.0); EOSINOPHILS % (AUTO) 0.1 % (0.0-4.0); HEMATOCRIT 25.2 % (36-48); HEMOGLOBIN 8.3 g/dL (12.0-16.0); LYMPHOCYTES # (AUTO) 0.9 K/uL (1.0-5.5); LYMPHOCYTES % (AUTO) 6.9 % (20.5-51.5); MEAN CORPUSCULAR HEMOGLOBIN 29 pg (27-31); MEAN CORPUSCULAR HGB CONC 33 % (32-36); MEAN CORPUSCULAR VOLUME 89 fL (79.0-98.0); MONOCYTES # (AUTO) 0.7 K/uL (0.0-1.0); MONOCYTES % (AUTO) 5.2 % (1.7-9.3); NEUTROPHILS # (AUTO) 11.8 K/uL (1.8-7.7); NEUTROPHILS % (AUTO) 87.6 % (40.0-70.0); PLATELET COUNT (AUTO) 457 K/uL (130-430); RED BLOOD CELL COUNT(AUTO) 2.82 MIL/uL (4.2-6.2); RED CELL DISTRIBUTION WIDTH 14.9 % (9.0-15.0); WHITE BLOOD COUNT (AUTO) 13.5 K/uL (4.8-10.8)
[2020-06-28 09:59] VITALS: BP_SYST 148
[2020-06-28] MEDS: D5/0.45 NS 1,000 ML IV SCH ×2 (10:02→20:33)
[2020-06-28] MEDS: LOSARTAN POTASSIUM 25 MG TABLET PO SCH (10:17)
[2020-06-28] MEDS: PANTOPRAZOLE SODIUM 40 MG/VIAL (PROTONIX) IVP SCH (10:17)
[2020-06-28] MEDS: LEVOFLOXACIN 250 MG/D5W 50 ML IV SCH (10:18)
[2020-06-28] MEDS: METOPROLOL TARTRATE 25 MG TABLET PO SCH ×2 (10:18→21:20)
[2020-06-28] MEDS: FOLIC ACID 1 MG TABLET PO SCH (10:18)
[2020-06-28 12:00] VITALS: BP_SYST 146
[2020-06-28] MEDS ORDERED: ENOXAPARIN SODIUM 30 MG/0.3 ML SYRINGE SUBCUT ONE (12:15)
[2020-06-28] MEDS: VANCOMYCIN HCL 1,750 MG in NS 500 ML IV SCH (13:41)
[2020-06-28 16:00] VITALS: BP_SYST 127
[2020-06-28 20:30] VITALS: BP_SYST 127
[2020-06-28] MEDS: ATORVASTATIN 20 MG TABLET PO SCH (21:20)
[2020-06-29 01:48] VITALS: BP_SYST 134
[2020-06-29] MEDS: IPRATROPIUM/ALBUTEROL SULFATE 3 ML AMPUL.NEB (DUONEB) INH SCH ×6 (03:00→23:00)
[2020-06-29] MEDS: traMADol HCL HCL 50 MG TABLET (ULTRAM) PO PRN ×3 (04:11→16:59)
[2020-06-29] MEDS: DEXAMETHASONE SOD PHOSPHATE 10 MG/ML VIAL IVP SCH (05:50)
[2020-06-29] MEDS: METOCLOPRAMIDE HCL 10 MG/2 ML VIAL IVP SCH ×3 (05:50→18:07)
[2020-06-29] MEDS: D5/0.45 NS 1,000 ML IV SCH ×2 (05:58→21:28)
[2020-06-29 08:00] VITALS: BP_SYST 172
[2020-06-29] MEDS: LEVOFLOXACIN 250 MG/D5W 50 ML IV SCH (08:00)
[2020-06-29] MEDS ORDERED: ENOXAPARIN SODIUM 30 MG/0.3 ML SYRINGE ONE (08:07)
[2020-06-29 09:03] LABS: BASOPHILS % (AUTO) 0.2 % (0.0-2.0); EOSINOPHILS % (AUTO) 0.3 % (0.0-4.0); HEMATOCRIT 26.8 % (36-48); HEMOGLOBIN 8.8 g/dL (12.0-16.0); LYMPHOCYTES # (AUTO) 1.1 K/uL (1.0-5.5); LYMPHOCYTES % (AUTO) 8.6 % (20.5-51.5); MEAN CORPUSCULAR HEMOGLOBIN 30 pg (27-31); MEAN CORPUSCULAR HGB CONC 33 % (32-36); MEAN CORPUSCULAR VOLUME 90 fL (79.0-98.0); MONOCYTES # (AUTO) 0.6 K/uL (0.0-1.0); MONOCYTES % (AUTO) 4.4 % (1.7-9.3); NEUTROPHILS # (AUTO) 10.9 K/uL (1.8-7.7); NEUTROPHILS % (AUTO) 86.5 % (40.0-70.0); PLATELET COUNT (AUTO) 476 K/uL (130-430); RED BLOOD CELL COUNT(AUTO) 2.99 MIL/uL (4.2-6.2); RED CELL DISTRIBUTION WIDTH 14.8 % (9.0-15.0); WHITE BLOOD COUNT (AUTO) 12.7 K/uL (4.8-10.8)
[2020-06-29 09:32] LABS: ANION GAP 7 (5-15); CALCIUM 8.2 mg/dL (8.4-11.0); CHLORIDE 104 mmol/L (98-107); CREATININE 1.26 mg/dL (0.55-1.30); GLUCOSE 133 mg/dL (70-99); POTASSIUM 3.9 mmol/L (3.5-5.1); SODIUM SERUM 137 mmol/L (136-145); UREA NITROGEN, BLOOD 37 mg/dL (8-21)
[2020-06-29] MEDS ORDERED: HEPARIN IV FLUSH 300 UNITS/3ML SYR IV ONE (09:45)
[2020-06-29 10:12] VITALS: BP_SYST 134
[2020-06-29] MEDS: PANTOPRAZOLE SODIUM 40 MG/VIAL (PROTONIX) IVP SCH (10:26)
[2020-06-29] MEDS: FOLIC ACID 1 MG TABLET PO SCH (10:26)
[2020-06-29] MEDS: ENOXAPARIN SODIUM 30 MG/0.3 ML SYRINGE SUBCUT SCH (10:28)
[2020-06-29] MEDS: METOPROLOL TARTRATE 25 MG TABLET PO SCH ×2 (10:29→21:18)
[2020-06-29] MEDS: LOSARTAN POTASSIUM 25 MG TABLET PO SCH (10:29)
[2020-06-29 12:00] VITALS: BP_SYST 154
[2020-06-29 16:00] VITALS: BP_SYST 135
[2020-06-29 20:00] VITALS: BP_SYST 121
[2020-06-29] MEDS: ATORVASTATIN 20 MG TABLET PO SCH (21:17)
[2020-06-29] MEDS: VANCOMYCIN HCL 1.25 GM/NS 250 ML IV SCH (21:17)
[2020-06-30] MEDS: METOCLOPRAMIDE HCL 10 MG/2 ML VIAL IVP SCH ×4 (00:09→17:43)
[2020-06-30] MEDS: IPRATROPIUM/ALBUTEROL SULFATE 3 ML AMPUL.NEB (DUONEB) INH SCH ×6 (03:00→23:00)
[2020-06-30] MEDS: DEXAMETHASONE SOD PHOSPHATE 10 MG/ML VIAL IVP SCH (05:43)
[2020-06-30 08:00] VITALS: BP_SYST 125
[2020-06-30 08:13] LABS: BASOPHILS % (AUTO) 0.3 % (0.0-2.0); EOSINOPHILS # (AUTO) 0.1 K/uL (0.0-0.4); EOSINOPHILS % (AUTO) 0.8 % (0.0-4.0); HEMATOCRIT 28.6 % (36-48); HEMOGLOBIN 9.2 g/dL (12.0-16.0); LYMPHOCYTES # (AUTO) 2.6 K/uL (1.0-5.5); LYMPHOCYTES % (AUTO) 21.1 % (20.5-51.5); MEAN CORPUSCULAR HEMOGLOBIN 29 pg (27-31); MEAN CORPUSCULAR HGB CONC 32 % (32-36); MEAN CORPUSCULAR VOLUME 91 fL (79.0-98.0); MONOCYTES # (AUTO) 0.8 K/uL (0.0-1.0); MONOCYTES % (AUTO) 6.8 % (1.7-9.3); NEUTROPHILS # (AUTO) 8.6 K/uL (1.8-7.7); PLATELET COUNT (AUTO) 480 K/uL (130-430); RED BLOOD CELL COUNT(AUTO) 3.14 MIL/uL (4.2-6.2); RED CELL DISTRIBUTION WIDTH 14.5 % (9.0-15.0); WHITE BLOOD COUNT (AUTO) 12.2 K/uL (4.8-10.8)
[2020-06-30] MEDS: FOLIC ACID 1 MG TABLET PO SCH (08:48)
[2020-06-30] MEDS: PANTOPRAZOLE SODIUM 40 MG/VIAL (PROTONIX) IVP SCH (08:48)
[2020-06-30] MEDS: LOSARTAN POTASSIUM 25 MG TABLET PO SCH (08:49)
[2020-06-30] MEDS: METOPROLOL TARTRATE 25 MG TABLET PO SCH ×2 (08:49→20:14)
[2020-06-30] MEDS: LEVOFLOXACIN 250 MG/D5W 50 ML IV SCH (08:49)
[2020-06-30] MEDS: ENOXAPARIN SODIUM 30 MG/0.3 ML SYRINGE SUBCUT SCH (09:00)
[2020-06-30] MEDS ORDERED: ENOXAPARIN SODIUM 30 MG/0.3 ML SYRINGE ONE (10:54)
[2020-06-30] MEDS: traMADol HCL HCL 50 MG TABLET (ULTRAM) PO PRN ×2 (11:30→18:52)
[2020-06-30] MEDS: D5/0.45 NS 1,000 ML IV SCH (12:33)
[2020-06-30 12:34] VITALS: BP_SYST 150
[2020-06-30 16:00] VITALS: BP_SYST 138
[2020-06-30 19:00] VITALS: BP_SYST 138
[2020-06-30] MEDS: VANCOMYCIN HCL 1.25 GM/NS 250 ML IV SCH (20:12)
[2020-06-30] MEDS: ATORVASTATIN 20 MG TABLET PO SCH (22:55)
[2020-07-01] MEDS: METOCLOPRAMIDE HCL 10 MG/2 ML VIAL IVP SCH ×4 (00:33→17:48)
[2020-07-01 00:40] VITALS: BP_SYST 134
[2020-07-01] MEDS: IPRATROPIUM/ALBUTEROL SULFATE 3 ML AMPUL.NEB (DUONEB) INH SCH ×6 (03:00→23:00)
[2020-07-01] MEDS: DEXAMETHASONE SOD PHOSPHATE 10 MG/ML VIAL IVP SCH (05:19)
[2020-07-01] MEDS: D5/0.45 NS 1,000 ML IV SCH ×2 (05:35→16:10)
[2020-07-01 08:30] VITALS: BP_SYST 150
[2020-07-01] MEDS: ENOXAPARIN SODIUM 30 MG/0.3 ML SYRINGE SUBCUT SCH (09:00)
[2020-07-01] MEDS: LEVOFLOXACIN 250 MG/D5W 50 ML IV SCH (09:27)
[2020-07-01] MEDS: METOPROLOL TARTRATE 25 MG TABLET PO SCH ×2 (09:27→20:51)
[2020-07-01] MEDS: LOSARTAN POTASSIUM 25 MG TABLET PO SCH (09:27)
[2020-07-01] MEDS: PANTOPRAZOLE SODIUM 40 MG/VIAL (PROTONIX) IVP SCH (09:27)
[2020-07-01] MEDS: FOLIC ACID 1 MG TABLET PO SCH (09:27)
[2020-07-01] MEDS ORDERED: ENOXAPARIN SODIUM 30 MG/0.3 ML SYRINGE ONE (11:36)
[2020-07-01 12:00] VITALS: BP_SYST 144
[2020-07-01 13:45] LABS: ALANINE AMINOTRANSFERASE 24 U/L (12-78); ALBUMIN 1.8 g/dL (3.4-4.8); ANION GAP 4 (5-15); ASPARTATE AMINOTRANSFERASE 26 U/L (10-37); CHLORIDE 105 mmol/L (98-107); CREATININE 1.14 mg/dL (0.55-1.30); GLUCOSE 181 mg/dL (70-99); POTASSIUM 4.2 mmol/L (3.5-5.1); SODIUM SERUM 139 mmol/L (136-145); TOTAL BILIRUBIN 0.4 mg/dL (0.0-1.0); UREA NITROGEN, BLOOD 31 mg/dL (8-21)
[2020-07-01 13:59] LABS: VANCOMYCIN,TROUGH 22.6 ug/mL (5.0-10.0)
[2020-07-01] MEDS: traMADol HCL HCL 50 MG TABLET (ULTRAM) PO PRN (14:48)
[2020-07-01 16:47] VITALS: BP_SYST 138
[2020-07-01] MEDS: VANCOMYCIN HCL 1.25 GM/NS 250 ML IV SCH (20:22)
[2020-07-01 20:40] VITALS: BP_SYST 146
[2020-07-01] MEDS: ATORVASTATIN 20 MG TABLET PO SCH (20:50)
[2020-07-02] VITALS (7 sets, daily range): BP systolic 114–149
[2020-07-02] MEDS: D5/0.45 NS 1,000 ML IV SCH ×2 (01:31→17:24)
[2020-07-02] MEDS ORDERED: ACETAMINOPHEN 325 MG TABLET ONE (01:39)
[2020-07-02] MEDS: ACETAMINOPHEN 325 MG TABLET PO PRN ×2 (01:43→04:23)
[2020-07-02] MEDS: IPRATROPIUM/ALBUTEROL SULFATE 3 ML AMPUL.NEB (DUONEB) INH SCH ×6 (03:00→23:00)
[2020-07-02] MEDS: DEXAMETHASONE SOD PHOSPHATE 10 MG/ML VIAL IVP SCH (04:32)
[2020-07-02] MEDS: traMADol HCL HCL 50 MG TABLET (ULTRAM) PO PRN ×3 (05:21→22:08)
[2020-07-02] MEDS: METOCLOPRAMIDE HCL 10 MG/2 ML VIAL IVP SCH ×4 (06:00→17:25)
[2020-07-02 07:47] LABS: ANION GAP 4 (5-15); CHLORIDE 106 mmol/L (98-107); CREATININE 1.08 mg/dL (0.55-1.30); GLUCOSE 121 mg/dL (70-99); POTASSIUM 3.6 mmol/L (3.5-5.1); SODIUM SERUM 140 mmol/L (136-145); UREA NITROGEN, BLOOD 25 mg/dL (8-21)
[2020-07-02 08:02] LABS: BASOPHILS # (AUTO) 0.1 K/uL (0.0-0.2); EOSINOPHILS # (AUTO) 0.2 K/uL (0.0-0.4); EOSINOPHILS % (AUTO) 1.4 % (0.0-4.0); HEMATOCRIT 26.1 % (36-48); HEMOGLOBIN 8.8 g/dL (12.0-16.0); LYMPHOCYTES # (AUTO) 1.5 K/uL (1.0-5.5); LYMPHOCYTES % (AUTO) 12.1 % (20.5-51.5); MEAN CORPUSCULAR HEMOGLOBIN 30 pg (27-31); MEAN CORPUSCULAR HGB CONC 34 % (32-36); MEAN CORPUSCULAR VOLUME 89 fL (79.0-98.0); MONOCYTES # (AUTO) 0.4 K/uL (0.0-1.0); MONOCYTES % (AUTO) 3.4 % (1.7-9.3); NEUTROPHILS % (AUTO) 82.1 % (40.0-70.0); PLATELET COUNT (AUTO) 395 K/uL (130-430); RED BLOOD CELL COUNT(AUTO) 2.92 MIL/uL (4.2-6.2); RED CELL DISTRIBUTION WIDTH 14.5 % (9.0-15.0)
[2020-07-02] MEDS ORDERED: ENOXAPARIN SODIUM 30 MG/0.3 ML SYRINGE ONE (08:55)
[2020-07-02 08:59] LABS: WHITE BLOOD COUNT (AUTO) 12.2 K/uL (4.8-10.8)
[2020-07-02] MEDS: PANTOPRAZOLE SODIUM 40 MG/VIAL (PROTONIX) IVP SCH (09:27)
[2020-07-02] MEDS: LEVOFLOXACIN 250 MG/D5W 50 ML IV SCH (09:27)
[2020-07-02] MEDS: LOSARTAN POTASSIUM 25 MG TABLET PO SCH (09:28)
[2020-07-02] MEDS: METOPROLOL TARTRATE 25 MG TABLET PO SCH ×2 (09:28→20:52)
[2020-07-02] MEDS: FOLIC ACID 1 MG TABLET PO SCH (09:28)
[2020-07-02] MEDS: ENOXAPARIN SODIUM 30 MG/0.3 ML SYRINGE SUBCUT SCH (09:49)
[2020-07-02] MEDS: ATORVASTATIN 20 MG TABLET PO SCH (20:52)
[2020-07-02] MEDS: VANCOMYCIN HCL 1.25 GM/NS 250 ML IV SCH (20:53)
[2020-07-03 02:48] VITALS: BP_SYST 122; BP_SYST 144
[2020-07-03] MEDS: IPRATROPIUM/ALBUTEROL SULFATE 3 ML AMPUL.NEB (DUONEB) INH SCH ×6 (03:00→23:00)
[2020-07-03] MEDS: DEXAMETHASONE SOD PHOSPHATE 10 MG/ML VIAL IVP SCH (05:00)
[2020-07-03] MEDS: METOCLOPRAMIDE HCL 10 MG/2 ML VIAL IVP SCH ×4 (06:49→17:36)
[2020-07-03 07:43] LABS: BASOPHILS # (AUTO) 0.1 K/uL (0.0-0.2); BASOPHILS % (AUTO) 0.7 % (0.0-2.0); EOSINOPHILS # (AUTO) 0.3 K/uL (0.0-0.4); EOSINOPHILS % (AUTO) 2.5 % (0.0-4.0); HEMATOCRIT 26.9 % (36-48); HEMOGLOBIN 8.8 g/dL (12.0-16.0); LYMPHOCYTES # (AUTO) 2.1 K/uL (1.0-5.5); LYMPHOCYTES % (AUTO) 18.1 % (20.5-51.5); MEAN CORPUSCULAR HEMOGLOBIN 30 pg (27-31); MEAN CORPUSCULAR HGB CONC 33 % (32-36); MEAN CORPUSCULAR VOLUME 90 fL (79.0-98.0); MONOCYTES # (AUTO) 0.7 K/uL (0.0-1.0); MONOCYTES % (AUTO) 6.3 % (1.7-9.3); NEUTROPHILS # (AUTO) 8.3 K/uL (1.8-7.7); NEUTROPHILS % (AUTO) 72.4 % (40.0-70.0); PLATELET COUNT (AUTO) 367 K/uL (130-430); RED BLOOD CELL COUNT(AUTO) 2.98 MIL/uL (4.2-6.2); RED CELL DISTRIBUTION WIDTH 14.7 % (9.0-15.0); WHITE BLOOD COUNT (AUTO) 11.5 K/uL (4.8-10.8)
[2020-07-03] MEDS: D5/0.45 NS 1,000 ML IV SCH ×2 (08:00→08:03)
[2020-07-03] MEDS ORDERED: ENOXAPARIN SODIUM 30 MG/0.3 ML SYRINGE ONE (08:54)
[2020-07-03] MEDS: ENOXAPARIN SODIUM 30 MG/0.3 ML SYRINGE SUBCUT SCH (09:00)
[2020-07-03] MEDS: METOPROLOL TARTRATE 25 MG TABLET PO SCH ×2 (09:00→21:16)
[2020-07-03] MEDS: LOSARTAN POTASSIUM 25 MG TABLET PO SCH (09:00)
[2020-07-03] MEDS: FOLIC ACID 1 MG TABLET PO SCH (09:00)
[2020-07-03] MEDS: PANTOPRAZOLE SODIUM 40 MG/VIAL (PROTONIX) IVP SCH (09:26)
[2020-07-03] MEDS: LEVOFLOXACIN 250 MG/D5W 50 ML IV SCH (09:26)
[2020-07-03 13:18] VITALS: BP_SYST 136
[2020-07-03] MEDS: traMADol HCL HCL 50 MG TABLET (ULTRAM) PO PRN (15:25)
[2020-07-03 20:00] VITALS: BP_SYST 116
[2020-07-03] MEDS ORDERED: VANCOMYCIN HCL 1,000 MG in NS 250 ML IV SCH (20:00)
[2020-07-03] MEDS: ATORVASTATIN 20 MG TABLET PO SCH (21:14)
[2020-07-04] MEDS: METOCLOPRAMIDE HCL 10 MG/2 ML VIAL IVP SCH ×5 (01:00→22:52)
[2020-07-04 01:53] VITALS: BP_SYST 126
[2020-07-04] MEDS: traMADol HCL HCL 50 MG TABLET (ULTRAM) PO PRN ×3 (02:26→22:52)
[2020-07-04] MEDS: IPRATROPIUM/ALBUTEROL SULFATE 3 ML AMPUL.NEB (DUONEB) INH SCH ×6 (03:00→23:00)
[2020-07-04] MEDS: DEXAMETHASONE SOD PHOSPHATE 10 MG/ML VIAL IVP SCH (05:34)
[2020-07-04 08:00] VITALS: BP_SYST 127
[2020-07-04] MEDS: LEVOFLOXACIN 250 MG/D5W 50 ML IV SCH (08:00)
[2020-07-04] MEDS ORDERED: ENOXAPARIN SODIUM 30 MG/0.3 ML SYRINGE ONE (09:00)
[2020-07-04] MEDS: PANTOPRAZOLE SODIUM 40 MG/VIAL (PROTONIX) IVP SCH (09:44)
[2020-07-04] MEDS: FOLIC ACID 1 MG TABLET PO SCH (09:44)
[2020-07-04] MEDS: METOPROLOL TARTRATE 25 MG TABLET PO SCH ×2 (09:45→20:12)
[2020-07-04] MEDS: LOSARTAN POTASSIUM 25 MG TABLET PO SCH (09:45)
[2020-07-04] MEDS: ENOXAPARIN SODIUM 30 MG/0.3 ML SYRINGE SUBCUT SCH (09:52)
[2020-07-04] MEDS: D5/0.45 NS 1,000 ML IV SCH ×2 (10:06→22:52)
[2020-07-04 12:13] VITALS: BP_SYST 144
[2020-07-04 16:11] VITALS: BP_SYST 118
[2020-07-04] MEDS ORDERED: MENTHOL/ZINC OXIDE 113 GM OINT. TP PRN (17:00)
[2020-07-04 20:00] VITALS: BP_SYST 135
[2020-07-04] MEDS: ACETAMINOPHEN 325 MG TABLET PO PRN (20:12)
[2020-07-04] MEDS: ATORVASTATIN 20 MG TABLET PO SCH (20:12)
[2020-07-04] MEDS ORDERED: ACETAMINOPHEN 325 MG TABLET ONE (20:13)
[2020-07-04 23:40] LABS: BASOPHILS % (AUTO) 0.5 % (0.0-2.0); EOSINOPHILS # (AUTO) 0.1 K/uL (0.0-0.4); EOSINOPHILS % (AUTO) 0.6 % (0.0-4.0); HEMATOCRIT 25.9 % (36-48); HEMOGLOBIN 8.6 g/dL (12.0-16.0); LYMPHOCYTES % (AUTO) 19.4 % (20.5-51.5); MEAN CORPUSCULAR HEMOGLOBIN 29 pg (27-31); MEAN CORPUSCULAR HGB CONC 33 % (32-36); MEAN CORPUSCULAR VOLUME 89 fL (79.0-98.0); MONOCYTES # (AUTO) 0.8 K/uL (0.0-1.0); MONOCYTES % (AUTO) 7.9 % (1.7-9.3); NEUTROPHILS # (AUTO) 7.5 K/uL (1.8-7.7); NEUTROPHILS % (AUTO) 71.6 % (40.0-70.0); PLATELET COUNT (AUTO) 324 K/uL (130-430); RED BLOOD CELL COUNT(AUTO) 2.92 MIL/uL (4.2-6.2); RED CELL DISTRIBUTION WIDTH 14.3 % (9.0-15.0); WHITE BLOOD COUNT (AUTO) 10.4 K/uL (4.8-10.8)
[2020-07-05 00:16] VITALS: BP_SYST 131
[2020-07-05] MEDS: IPRATROPIUM/ALBUTEROL SULFATE 3 ML AMPUL.NEB (DUONEB) INH SCH ×6 (03:00→23:00)
[2020-07-05] MEDS: traMADol HCL HCL 50 MG TABLET (ULTRAM) PO PRN ×2 (05:05→18:55)
[2020-07-05] MEDS: METOCLOPRAMIDE HCL 10 MG/2 ML VIAL IVP SCH ×3 (05:05→18:18)
[2020-07-05] MEDS: DEXAMETHASONE SOD PHOSPHATE 10 MG/ML VIAL IVP SCH (05:05)
[2020-07-05 08:00] VITALS: BP_SYST 134
[2020-07-05] MEDS: PANTOPRAZOLE SODIUM 40 MG/VIAL (PROTONIX) IVP SCH (09:12)
[2020-07-05] MEDS: LEVOFLOXACIN 250 MG/D5W 50 ML IV SCH (09:12)
[2020-07-05] MEDS: METOPROLOL TARTRATE 25 MG TABLET PO SCH ×2 (09:13→20:27)
[2020-07-05] MEDS: LOSARTAN POTASSIUM 25 MG TABLET PO SCH (09:13)
[2020-07-05] MEDS: FOLIC ACID 1 MG TABLET PO SCH (09:14)
[2020-07-05 11:30] VITALS: BP_SYST 144
[2020-07-05] MEDS ORDERED: ENOXAPARIN SODIUM 30 MG/0.3 ML SYRINGE ONE (12:01)
[2020-07-05] MEDS: ENOXAPARIN SODIUM 30 MG/0.3 ML SYRINGE SUBCUT SCH (12:08)
[2020-07-05] MEDS: D5/0.45 NS 1,000 ML IV SCH (12:09)
[2020-07-05 16:00] VITALS: BP_SYST 130
[2020-07-05 20:00] VITALS: BP_SYST 122
[2020-07-05] MEDS: ATORVASTATIN 20 MG TABLET PO SCH (20:27)
[2020-07-06] VITALS: BP_SYST 112; BP_SYST 124
[2020-07-06] MEDS: METOCLOPRAMIDE HCL 10 MG/2 ML VIAL IVP SCH ×5 (00:29→23:41)
[2020-07-06] MEDS: D5/0.45 NS 1,000 ML IV SCH ×2 (00:29→16:05)
[2020-07-06] MEDS: traMADol HCL HCL 50 MG TABLET (ULTRAM) PO PRN (02:55)
[2020-07-06] MEDS: IPRATROPIUM/ALBUTEROL SULFATE 3 ML AMPUL.NEB (DUONEB) INH SCH ×6 (03:00→23:00)
[2020-07-06] MEDS: DEXAMETHASONE SOD PHOSPHATE 10 MG/ML VIAL IVP SCH (05:15)
[2020-07-06 06:57] LABS: BASOPHILS # (AUTO) 0.1 K/uL (0.0-0.2); BASOPHILS % (AUTO) 0.6 % (0.0-2.0); EOSINOPHILS # (AUTO) 0.2 K/uL (0.0-0.4); EOSINOPHILS % (AUTO) 1.8 % (0.0-4.0); HEMATOCRIT 26.8 % (36-48); HEMOGLOBIN 8.9 g/dL (12.0-16.0); LYMPHOCYTES # (AUTO) 2.1 K/uL (1.0-5.5); LYMPHOCYTES % (AUTO) 21.6 % (20.5-51.5); MEAN CORPUSCULAR HEMOGLOBIN 30 pg (27-31); MEAN CORPUSCULAR HGB CONC 33 % (32-36); MEAN CORPUSCULAR VOLUME 90 fL (79.0-98.0); MONOCYTES # (AUTO) 0.7 K/uL (0.0-1.0); MONOCYTES % (AUTO) 7.1 % (1.7-9.3); NEUTROPHILS # (AUTO) 6.6 K/uL (1.8-7.7); NEUTROPHILS % (AUTO) 68.9 % (40.0-70.0); PLATELET COUNT (AUTO) 298 K/uL (130-430); RED BLOOD CELL COUNT(AUTO) 2.99 MIL/uL (4.2-6.2); RED CELL DISTRIBUTION WIDTH 14.5 % (9.0-15.0); WHITE BLOOD COUNT (AUTO) 9.6 K/uL (4.8-10.8)
[2020-07-06 07:21] LABS: ANION GAP 3 (5-15); CHLORIDE 104 mmol/L (98-107); GLUCOSE 105 mg/dL (70-99); POTASSIUM 3.5 mmol/L (3.5-5.1); SODIUM SERUM 139 mmol/L (136-145); UREA NITROGEN, BLOOD 19 mg/dL (8-21)
[2020-07-06 08:00] VITALS: BP_SYST 137
[2020-07-06] MEDS: LEVOFLOXACIN 250 MG/D5W 50 ML IV SCH (08:00)
[2020-07-06] MEDS ORDERED: ENOXAPARIN SODIUM 30 MG/0.3 ML SYRINGE ONE (09:25)
[2020-07-06] MEDS: PANTOPRAZOLE SODIUM 40 MG/VIAL (PROTONIX) IVP SCH (09:25)
[2020-07-06] MEDS: FOLIC ACID 1 MG TABLET PO SCH (09:29)
[2020-07-06] MEDS: METOPROLOL TARTRATE 25 MG TABLET PO SCH ×2 (09:29→21:25)
[2020-07-06] MEDS: LOSARTAN POTASSIUM 25 MG TABLET PO SCH (09:30)
[2020-07-06] MEDS: ENOXAPARIN SODIUM 30 MG/0.3 ML SYRINGE SUBCUT SCH (09:39)
[2020-07-06] MEDS ORDERED: METOCLOPRAMIDE HCL 10 MG/2 ML VIAL ONE (11:58)
[2020-07-06 12:00] VITALS: BP_SYST 137
[2020-07-06 20:00] VITALS: BP_SYST 139
[2020-07-06] MEDS: ATORVASTATIN 20 MG TABLET PO SCH (21:25)
[2020-07-07] VITALS: BP_SYST 109
[2020-07-07] MEDS ORDERED: ACETAMINOPHEN 325 MG TABLET ONE (01:57)
[2020-07-07] MEDS: ACETAMINOPHEN 325 MG TABLET PO PRN (01:58)
[2020-07-07] MEDS: D5/0.45 NS 1,000 ML IV SCH ×2 (03:21→16:57)
[2020-07-07] MEDS: DEXAMETHASONE SOD PHOSPHATE 10 MG/ML VIAL IVP SCH (05:08)
[2020-07-07] MEDS: METOCLOPRAMIDE HCL 10 MG/2 ML VIAL IVP SCH ×3 (05:09→16:57)
[2020-07-07 08:41] VITALS: BP_SYST 147
[2020-07-07] MEDS: LEVOFLOXACIN 250 MG/D5W 50 ML IV SCH (08:45)
[2020-07-07] MEDS: FOLIC ACID 1 MG TABLET PO SCH (08:48)
[2020-07-07] MEDS: LOSARTAN POTASSIUM 25 MG TABLET PO SCH (08:48)
[2020-07-07] MEDS: PANTOPRAZOLE SODIUM 40 MG/VIAL (PROTONIX) IVP SCH (08:51)
[2020-07-07] MEDS: METOPROLOL TARTRATE 25 MG TABLET PO SCH ×2 (08:51→22:52)
[2020-07-07] MEDS: IPRATROPIUM/ALBUTEROL SULFATE 3 ML AMPUL.NEB (DUONEB) INH SCH ×5 (08:52→20:04)
[2020-07-07] MEDS ORDERED: ENOXAPARIN SODIUM 30 MG/0.3 ML SYRINGE ONE (08:53)
[2020-07-07] MEDS: ENOXAPARIN SODIUM 30 MG/0.3 ML SYRINGE SUBCUT SCH (08:57)
[2020-07-07] MEDS ORDERED: traMADol HCL HCL 50 MG TABLET (ULTRAM) ONE (12:05)
[2020-07-07] MEDS: traMADol HCL HCL 50 MG TABLET (ULTRAM) PO PRN (12:07)
[2020-07-07 12:10] VITALS: BP_SYST 130
[2020-07-07 16:15] VITALS: BP_SYST 134
[2020-07-07 20:30] VITALS: BP_SYST 129
[2020-07-07] MEDS: ATORVASTATIN 20 MG TABLET PO SCH (22:52)
[2020-07-08] VITALS: BP_SYST 107; BP_SYST 136
[2020-07-08] MEDS ORDERED: ACETAMINOPHEN 325 MG TABLET ONE (00:06)
[2020-07-08] MEDS: ACETAMINOPHEN 325 MG TABLET PO PRN (00:10)
[2020-07-08] MEDS: METOCLOPRAMIDE HCL 10 MG/2 ML VIAL IVP SCH ×5 (05:49→22:56)
[2020-07-08] MEDS: D5/0.45 NS 1,000 ML IV SCH ×2 (05:52→22:55)
[2020-07-08] MEDS: IPRATROPIUM/ALBUTEROL SULFATE 3 ML AMPUL.NEB (DUONEB) INH SCH ×5 (08:17→23:00)
[2020-07-08 08:37] LABS: BASOPHILS # (AUTO) 0.1 K/uL (0.0-0.2); EOSINOPHILS # (AUTO) 0.2 K/uL (0.0-0.4); EOSINOPHILS % (AUTO) 1.5 % (0.0-4.0); HEMATOCRIT 27.1 % (36-48); HEMOGLOBIN 8.9 g/dL (12.0-16.0); LYMPHOCYTES # (AUTO) 2.7 K/uL (1.0-5.5); LYMPHOCYTES % (AUTO) 26.4 % (20.5-51.5); MEAN CORPUSCULAR HEMOGLOBIN 29 pg (27-31); MEAN CORPUSCULAR HGB CONC 33 % (32-36); MEAN CORPUSCULAR VOLUME 89 fL (79.0-98.0); MONOCYTES # (AUTO) 0.7 K/uL (0.0-1.0); MONOCYTES % (AUTO) 6.8 % (1.7-9.3); NEUTROPHILS # (AUTO) 6.5 K/uL (1.8-7.7); NEUTROPHILS % (AUTO) 64.3 % (40.0-70.0); PLATELET COUNT (AUTO) 302 K/uL (130-430); RED BLOOD CELL COUNT(AUTO) 3.04 MIL/uL (4.2-6.2); WHITE BLOOD COUNT (AUTO) 10.1 K/uL (4.8-10.8)
[2020-07-08] MEDS ORDERED: ENOXAPARIN SODIUM 30 MG/0.3 ML SYRINGE ONE (09:07)
[2020-07-08 09:18] VITALS: BP_SYST 140
[2020-07-08] MEDS: PANTOPRAZOLE SODIUM 40 MG/VIAL (PROTONIX) IVP SCH (09:18)
[2020-07-08] MEDS: FOLIC ACID 1 MG TABLET PO SCH (09:18)
[2020-07-08] MEDS: LOSARTAN POTASSIUM 25 MG TABLET PO SCH (09:18)
[2020-07-08] MEDS: LEVOFLOXACIN 250 MG/D5W 50 ML IV SCH (09:18)
[2020-07-08] MEDS: METOPROLOL TARTRATE 25 MG TABLET PO SCH ×2 (09:18→23:02)
[2020-07-08] MEDS: ENOXAPARIN SODIUM 30 MG/0.3 ML SYRINGE SUBCUT SCH (09:22)
[2020-07-08 12:06] VITALS: BP_SYST 130
[2020-07-08] MEDS ORDERED: traMADol HCL HCL 50 MG TABLET (ULTRAM) ONE (12:10)
[2020-07-08] MEDS: traMADol HCL HCL 50 MG TABLET (ULTRAM) PO PRN (12:12)
[2020-07-08 13:34] VITALS: BP_SYST 130
[2020-07-08 16:08] VITALS: BP_SYST 117
[2020-07-08] MEDS: ATORVASTATIN 20 MG TABLET PO SCH (22:55)
[2020-07-09] MEDS: ACETAMINOPHEN 325 MG TABLET PO PRN ×2 (01:35→22:02)
[2020-07-09] MEDS ORDERED: ACETAMINOPHEN 325 MG TABLET ONE ×2 (01:35→22:02)
[2020-07-09 01:37] VITALS: BP_SYST 121
[2020-07-09] MEDS: IPRATROPIUM/ALBUTEROL SULFATE 3 ML AMPUL.NEB (DUONEB) INH SCH ×5 (03:00→19:55)
[2020-07-09] MEDS: METOCLOPRAMIDE HCL 10 MG/2 ML VIAL IVP SCH ×3 (06:00→18:04)
[2020-07-09 08:00] VITALS: BP_SYST 139
[2020-07-09] MEDS ORDERED: ENOXAPARIN SODIUM 30 MG/0.3 ML SYRINGE ONE (09:14)
[2020-07-09] MEDS: METOPROLOL TARTRATE 25 MG TABLET PO SCH ×2 (09:18→22:02)
[2020-07-09] MEDS: PANTOPRAZOLE SODIUM 40 MG/VIAL (PROTONIX) IVP SCH (09:18)
[2020-07-09] MEDS: FOLIC ACID 1 MG TABLET PO SCH (09:18)
[2020-07-09] MEDS: LEVOFLOXACIN 250 MG/D5W 50 ML IV SCH (09:18)
[2020-07-09] MEDS: LOSARTAN POTASSIUM 25 MG TABLET PO SCH (09:19)
[2020-07-09] MEDS: ENOXAPARIN SODIUM 30 MG/0.3 ML SYRINGE SUBCUT SCH (09:20)
[2020-07-09] MEDS: D5/0.45 NS 1,000 ML IV SCH (10:30)
[2020-07-09] MEDS: traMADol HCL HCL 50 MG TABLET (ULTRAM) PO PRN (12:11)
[2020-07-09] MEDS ORDERED: traMADol HCL HCL 50 MG TABLET (ULTRAM) ONE (12:11)
[2020-07-09 12:28] VITALS: BP_SYST 108
[2020-07-09 16:00] VITALS: BP_SYST 125
[2020-07-09] MEDS: ATORVASTATIN 20 MG TABLET PO SCH (22:02)
[2020-07-09 22:33] VITALS: BP_SYST 123
== END 2020-07-09 23:35 | DRG 480 ==
LOC: SED 13:14 → SMU 15:04
PROVIDERS: ADMIT Internal Medicine; ATTEND Internal Medicine
PROC: 0D9670Z Drainage of Stomach with Drainage Device, Via Natural or Artificial Opening (ICD-10-PCS; 2020-06-10)
PROC: 0QS706Z Reposition Left Upper Femur with Intramedullary Internal Fixation Device, Open Approach (ICD-10-PCS; principal; 2020-06-14 10:00)
PROC: 30233N1 Transfusion of Nonautologous Red Blood Cells into Peripheral Vein, Percutaneous Approach (ICD-10-PCS; 2020-06-22)
PROC: 02HV33Z Insertion of Infusion Device into Superior Vena Cava, Percutaneous Approach (ICD-10-PCS; 2020-06-25)
PROC: B548ZZA Ultrasonography of Superior Vena Cava, Guidance (ICD-10-PCS; 2020-06-25)
PROC: 0QW704Z Revision of Internal Fixation Device in Left Upper Femur, Open Approach (ICD-10-PCS; 2020-06-26)
PROC: 5A09357 Assistance with Respiratory Ventilation, Less than 24 Consecutive Hours, Continuous Positive Airway Pressure (ICD-10-PCS; 2020-06-26)
PROC: 5A09357 Assistance with Respiratory Ventilation, Less than 24 Consecutive Hours, Continuous Positive Airway Pressure (ICD-10-PCS; 2020-06-27)
PROC: 5A09357 Assistance with Respiratory Ventilation, Less than 24 Consecutive Hours, Continuous Positive Airway Pressure (ICD-10-PCS; 2020-06-28)
DX: S72.142A Displaced intertrochanteric fracture of left femur, initial encounter for closed fracture (principal); S72.141A Displaced intertrochanteric fracture of right femur, initial encounter for closed fracture; J18.9 Pneumonia, unspecified organism; J44.0 Chronic obstructive pulmonary disease with (acute) lower respiratory infection; N17.9 Acute kidney failure, unspecified; Z68.43 Body mass index [BMI] 50.0-59.9, adult; S72.21XA Displaced subtrochanteric fracture of right femur, initial encounter for closed fracture; S72.22XA Displaced subtrochanteric fracture of left femur, initial encounter for closed fracture; D50.0 Iron deficiency anemia secondary to blood loss (chronic); E11.9 Type 2 diabetes mellitus without complications; E66.01 Morbid (severe) obesity due to excess calories; E78.5 Hyperlipidemia, unspecified; E78.00 Pure hypercholesterolemia, unspecified; G47.30 Sleep apnea, unspecified; I11.0 Hypertensive heart disease with heart failure; I50.9 Heart failure, unspecified; D63.8 Anemia in other chronic diseases classified elsewhere; J84.10 Pulmonary fibrosis, unspecified; T38.0X5A Adverse effect of glucocorticoids and synthetic analogues, initial encounter; Z96.653 Presence of artificial knee joint, bilateral; Z20.822 Contact with and (suspected) exposure to COVID-19; W01.0XXA Fall on same level from slipping, tripping and stumbling without subsequent striking against object, initial encounter; Y93.89 Activity, other specified; Y92.89 Other specified places as the place of occurrence of the external cause; Y99.8 Other external cause status; Z88.0 Allergy status to penicillin; Z79.899 Other long term (current) drug therapy
CPT/HCPCS: 36415; 71045; 73521; 74018; 74250-TC; 76000; 76001; 76700-TC; 80048; 80053; 80202-TC; 81000-TC; 82272; 82607; 82728; 82746; 83540-TC; 83550-TC; 83880; 85007; 85018-TC; 85025; 85027; 85044-TC; 85610-TC; 85730-TC; 86738; 86886; 86900; 86901; 86920; 87040-TC; 87081; 87086; 93005; 93306; 94010; 94640; 94660; 94760; 96361; 96374; 97110-GP; 97112-GP; 97163; 97530-GP; C1713; C1769; C9113; J0171; J0456; J0690; J0696; J1100; J1642; J1650; J1940; J1956; J2250; J2270; J2405; J2704; J2765; J2916; J3010; J3370; J3490; J7030; J7040; J7050; J7120; P9021; Q9963; U0003